=== PATIENT | female | born 1960 | race Caucasian/White ===

== ENCOUNTER → 2016-10-11 | Outpatient (CLI) | payer OTHER ==
[~2016-10-11] MED LIST: 'XANAX0.25 MG PO; ASPIRIN81 M1 PO; ATIVAN1 MG PO; ATOXIMETIN-B1 CAP PO; AUGMENTIN 875875 MG PO; CIPRO500 MG PO; CLARITIN10 MG PO; EPIPEN 2-PAK1 MG/M1 MR; FLEXERIL10 MG PO; FLEXERIL5 MG PO; FLONASE ALLERG9.9 ML NAS; FLONASE ALLERG9.9 ML NS; FOLIC ACID1 MG PO; HYDR12.5C PO; HYDROCODON-ACE1 EACH PO; HYDROCODONE BIT1 T11 PO; K-TAB10 MEQ PO; KCL PO; KEFLEX500 MG PO; LASIX20 MG PO; MAG-OX 400400 MG PO; MASON NATURAL2000 IU PO; MOTRIN800 MG PO; MS CONTIN15 MG PO; MULTI VITAMINS1 CTB PO; NAPROSYN500 MG PO; NKHM; ONE DAILY ESSE1 EACH PO; PENICILLIN VK500 MG PO; PEPCID20 MG PO; POTASSIUM; POTASSIUM25 MEQ PO; PRILOSEC20 MG PO; PROTONIX40 MG PO; TETRACYCLINE500 MG PO; TRAMADOL HCL50 MG PO; VICODIN 5/500 505 MG PO; VICODIN 500 MG-1 TAB PO; VICODIN1 TAB PO; Vicodin 5/500 505 MG PO; XANAX0.25 MG PO; ZOFRAN ODT8 MG PO; ZOLOFT; ZOLOFT50 MG PO
== END | disposition home or self-care (01) ==
LOC: CARD 02:06
DX: I25.89 Other forms of chronic ischemic heart disease (principal); R06.02 Shortness of breath

== ENCOUNTER → 2016-11-07 | Outpatient (CLI) | payer OTHER | END | disposition home or self-care (01) | LOC: CT 14:43 | DX: N20.0 Calculus of kidney (principal); K57.30 Diverticulosis of large intestine without perforation or abscess without bleeding; Z90.49 Acquired absence of other specified parts of digestive tract ==

== ENCOUNTER 2017-04-10 11:47 | Emergency (ER) | payer OTHER ==
[~2017-04-10] VITALS: Ht 154.9 cm; Wt 64.9 kg
[2017-04-10] MEDS ORDERED: METOPROLOL SUCC25 M2 PO (11:56)
[2017-04-10] MEDS ORDERED: PROZAC10 MG PO (11:58)
== END 2017-04-10 13:37 | disposition home or self-care (01) ==
LOC: ED 11:47
DX: S93.401A Sprain of unspecified ligament of right ankle, initial encounter (principal); Z79.899 Other long term (current) drug therapy; Z79.82 Long term (current) use of aspirin; Z87.891 Personal history of nicotine dependence; X50.1XXA Overexertion from prolonged static or awkward postures, initial encounter; Y93.89 Activity, other specified; Y92.89 Other specified places as the place of occurrence of the external cause; Y99.8 Other external cause status

== ENCOUNTER 2017-07-18 19:47 | Inpatient (IN) | payer OTHER ==
[~2017-07-18] VITALS: Ht 154.9 cm; Wt 58.5 kg
[~2017-07-18 19:47] MED LIST changes: +METOPROLOL SUCC25 M2 PO; +PROZAC10 MG PO
[2017-07-18 19:55] VITALS: BP 149/108
[2017-07-18 20:10] LABS: BASO # 0.1 10*3/uL (0.0-0.1); BASO % 1.1 % (0.0-1.0); EOS # 0.1 10*3/uL (0.0-0.4); EOS % 2.1 % (1.0-4.0); HEMATOCRIT 40.9 % (37.0-47.0); HEMOGLOBIN 14.1 g/dl (12.0-16.0); LYMPH # 2.8 10*3/uL (1.3-4.4); LYMPH % 45.3 % (27.0-41.0); MEAN CELL VOLUME 94.9 fl (81.0-99.0); MEAN CORPUSCULAR HGB 32.7 pg (27.0-31.0); MEAN CORPUSCULAR HGB CONC 34.5 g/dl (33.0-37.0); MONO # 0.3 10*3/uL (0.1-1.0); MONO % 4.9 % (3.0-9.0); NEUT # 2.9 10*3/uL (2.3-7.9); NEUT % 46.4 % (47.0-73.0); PLATELET COUNT AUTOMATED 212 10*3/uL (130-400); RED BLOOD COUNT 4.31 10*6/uL (4.10-5.10); RED CELL DISTRI WIDTH 12.3 % (0-14.5); WHITE BLOOD COUNT 6.2 10*3/uL (4.8-10.8)
[2017-07-18 20:31] LABS: ALBUMIN 3.6 gm/dl (3.1-4.5); ALKALINE PHOSPHATASE 160 U/L (45-117); BUN 11 mg/dl (7-24); CHLORIDE 105 mmol/L (98-107); CREATININE 0.51 mg/dL (0.55-1.02); POTASSIUM 4.2 mmol/L (3.5-5.1); SGOT/AST 104 IU/L (3-35); SGPT/ALT 64 U/L (12-78); SODIUM 140 mmol/L (136-145); TOTAL PROTEIN 7.1 gm/dL (6.4-8.2)
[2017-07-18 20:33] LABS: TROPONIN I < 0.015 ng/ml (<0.045)
[2017-07-18 20:37] LABS: LIPASE 709 U/L (73-393)
[2017-07-18 21:13] LABS: ACT PARTIAL THROMBO TIME 27.6 SECONDS (20.8-31.5)
[2017-07-18 23:09] VITALS: BP 159/76
[2017-07-18 23:10] VITALS: BP 159/76
[2017-07-19] VITALS: BP 137/59
[2017-07-19 06:26] LABS: BASO # 0.1 10*3/uL (0.0-0.1); BASO % 0.9 % (0.0-1.0); EOS # 0.2 10*3/uL (0.0-0.4); EOS % 2.6 % (1.0-4.0); HEMATOCRIT 36.5 % (37.0-47.0); HEMOGLOBIN 12.5 g/dl (12.0-16.0); LYMPH # 2.9 10*3/uL (1.3-4.4); LYMPH % 49.1 % (27.0-41.0); MEAN CELL VOLUME 96.3 fl (81.0-99.0); MEAN CORPUSCULAR HGB CONC 34.2 g/dl (33.0-37.0); MEAN PLATELET VOLUME 8.8 fl (9.6-12.3); MONO # 0.4 10*3/uL (0.1-1.0); MONO % 6.5 % (3.0-9.0); NEUT # 2.4 10*3/uL (2.3-7.9); NEUT % 40.7 % (47.0-73.0); PLATELET COUNT AUTOMATED 179 10*3/uL (130-400); RED BLOOD COUNT 3.79 10*6/uL (4.10-5.10); RED CELL DISTRI WIDTH 12.2 % (0-14.5); WHITE BLOOD COUNT 5.8 10*3/uL (4.8-10.8)
[2017-07-19 07:04] LABS: BUN 10 mg/dl (7-24); CHLORIDE 106 mmol/L (98-107); CHOLESTEROL 133 mg/dL (<200); LIPASE 244 U/L (73-393); POTASSIUM 3.7 mmol/L (3.5-5.1); SGOT/AST 64 IU/L (3-35); SODIUM 140 mmol/L (136-145); TOTAL PROTEIN 6.1 gm/dL (6.4-8.2)
[2017-07-19 07:05] LABS: INTERNATIONAL NORM RATIO 1.1 (2.0-3.5)
[2017-07-19 07:14] LABS: ALKALINE PHOSPHATASE 129 U/L (45-117); CREATININE 0.46 mg/dL (0.55-1.02); HDL CHOLESTEROL 71 mg/dl (40-60); LDL CHOLESTEROL 55 mg/dL (9-159); PHOSPHOROUS 3.6 mg/dL (2.5-4.9); SGPT/ALT 48 U/L (12-78); TRIGLYCERIDES 36 mg/dl (<150); VLDL CHOLESTEROL 7 mg/dL (6-40)
[2017-07-19 07:50] LABS: VITAMIN D, 25-HYDROXY 30.1 ng/mL (30-100)
[2017-07-19 08:00] VITALS: BP 142/68
[2017-07-19 12:00] VITALS: BP 148/76
[2017-07-19 16:00] VITALS: BP 139/79
== END 2017-07-19 17:50 | disposition home or self-care (01) | DRG 439 ==
LOC: ED 19:47 → EDHOLD 22:17 → 5E 22:17 → EDHOLD 22:24 → 5E 22:31
PROVIDERS: Emergency Medicine Emergency Medical Services; Internal Medicine
DX: K85.20 Alcohol induced acute pancreatitis without necrosis or infection (principal); E44.0 Moderate protein-calorie malnutrition; N28.1 Cyst of kidney, acquired; K57.30 Diverticulosis of large intestine without perforation or abscess without bleeding; F10.10 Alcohol abuse, uncomplicated; M79.7 Fibromyalgia; I10 Essential (primary) hypertension; M19.90 Unspecified osteoarthritis, unspecified site; K21.9 Gastro-esophageal reflux disease without esophagitis; R74.0 Nonspecific elevation of levels of transaminase and lactic acid dehydrogenase [LDH]; F17.210 Nicotine dependence, cigarettes, uncomplicated; I25.10 Atherosclerotic heart disease of native coronary artery without angina pectoris; R07.89 Other chest pain; F41.1 Generalized anxiety disorder; Z68.24 Body mass index [BMI] 24.0-24.9, adult; Z82.49 Family history of ischemic heart disease and other diseases of the circulatory system; Z79.82 Long term (current) use of aspirin; Z79.899 Other long term (current) drug therapy; Z90.49 Acquired absence of other specified parts of digestive tract; Z98.891 History of uterine scar from previous surgery; Z83.6 Family history of other diseases of the respiratory system; Z80.8 Family history of malignant neoplasm of other organs or systems; Z80.0 Family history of malignant neoplasm of digestive organs; Z82.3 Family history of stroke

== ENCOUNTER 2018-01-17 07:29 | Emergency (ER) | payer OTHER ==
--- NOTE | ~2018-01-17 | EKG ---
[place], [place] ELECTROCARDIOGRAM REPORT NAME: RIKY RUDOLPH UNIT #: [id number] ROOM: DOCTOR: EPIPHANY DRAFT REPORT BIRTHDATE: [birth year] [facility] Test Date: 2018-01-17 Test Time: 08:01:51 Pat Name: RIKY RUDOLPH Department: Room: Gender: [employer] Dispatcher: Chantal De La O : 1960 Requested By: YUMIKO BAUMANN Order Number: [id number] Reading MD: Josue Hawkins MD Measurements Intervals [place] Rate: 75 P: 71 VA: 178 QRS: 81 QRSD: 95 T: 67 QT: 421 QTc: 471 Interpretive Statements Sinus rhythm Atrial premature complex Abnormal T, probable ischemia, anterior leads Baseline wander in lead(s) V3 Electronically Signed On 01-17-2018 16:50:18 PDT by Josue Hawkins MD CM:EKGRPT:ELECTROCARDIOGRAM REPORT [id number] YUMIKO MARIO DRAFT REPORT YUMIKO BAUMANN MD
[2018-01-17 08:08] LABS: BASO # 0.1 10*3/uL (0.0-0.1); BASO % 0.9 % (0.0-1.0); EOS # 0.2 10*3/uL (0.0-0.4); EOS % 3.4 % (1.0-4.0); HEMATOCRIT 42.1 % (37.0-47.0); HEMOGLOBIN 14.7 g/dl (12.0-16.0); LYMPH # 3.7 10*3/uL (1.3-4.4); MEAN CELL VOLUME 99.3 fl (81.0-99.0); MEAN CORPUSCULAR HGB 34.7 pg (27.0-31.0); MEAN CORPUSCULAR HGB CONC 34.9 g/dl (33.0-37.0); MEAN PLATELET VOLUME 8.7 fl (9.6-12.3); MONO # 0.4 10*3/uL (0.1-1.0); MONO % 6.3 % (3.0-9.0); NEUT % 31.2 % (47.0-73.0); PLATELET COUNT AUTOMATED 146 10*3/uL (130-400); RED BLOOD COUNT 4.24 10*6/uL (4.10-5.10); RED CELL DISTRI WIDTH 12.4 % (0-14.5); WHITE BLOOD COUNT 6.4 10*3/uL (4.8-10.8)
[2018-01-17 08:19] LABS: ACT PARTIAL THROMBO TIME 27.9 SECONDS (20.8-31.5)
[2018-01-17 08:23] LABS: ALKALINE PHOSPHATASE 150 U/L (45-117); BUN 10 mg/dl (7-24); CHLORIDE 106 mmol/L (98-107); CREATININE 0.57 mg/dL (0.55-1.02); POTASSIUM 3.4 mmol/L (3.5-5.1); SGOT/AST 42 IU/L (3-35); SGPT/ALT 32 U/L (12-78); SODIUM 145 mmol/L (136-145); TOTAL PROTEIN 7.8 gm/dL (6.4-8.2)
[2018-01-17 08:26] LABS: TROPONIN I < 0.015 ng/ml (<0.045)
[2018-01-17 08:36] LABS: BILIRUBIN NEGATIVE (NEGATIVE); BLOOD 1+ (NEGATIVE); CLARITY CLEAR (CLEAR); COLOR YELLOW (YELLOW); GLUCOSE NEGATIVE (NEGATIVE); KETONE NEGATIVE (NEGATIVE); LEUKO ESTERASE TRACE (NEGATIVE); NITRITE NEGATIVE (NEGATIVE); SPECIFIC GRAVITY <= 1.005 (1.005-1.030); UROBILINOGEN 0.2 E.U./dl (0.2-1.0)
[2018-01-17 08:40] LABS: URINE AMPHETAMINES < 1000 (1000ng/ml); URINE BARBITURATES < 200 (200ng/ml); URINE BENZODIAZEPINES < 200 (200ng/ml); URINE CANNABINOIDS (THC) < 50 (50ng/ml); URINE COCAINE < 300 (300ng/ml); URINE METHADONE < 300 (300ng/ml); URINE OPIATES < 300 (300ng/ml)
[2018-01-17 08:41] LABS: URINE PHENCYCLIDINE < 25 (25ng/ml)
[2018-01-17 08:54] LABS: BACTERIA TRACE
== END 2018-01-17 11:27 | disposition home or self-care (01) ==
LOC: ED 07:29
PROVIDERS: Emergency Medicine
DX: S01.01XA Laceration without foreign body of scalp, initial encounter (principal); S09.90XA Unspecified injury of head, initial encounter; I25.10 Atherosclerotic heart disease of native coronary artery without angina pectoris; M79.7 Fibromyalgia; K21.9 Gastro-esophageal reflux disease without esophagitis; I10 Essential (primary) hypertension; F17.200 Nicotine dependence, unspecified, uncomplicated; M19.90 Unspecified osteoarthritis, unspecified site; F10.220 Alcohol dependence with intoxication, uncomplicated; Z98.890 Other specified postprocedural states; Z90.49 Acquired absence of other specified parts of digestive tract; Z98.51 Tubal ligation status; Z79.82 Long term (current) use of aspirin; Z79.899 Other long term (current) drug therapy; W19.XXXA Unspecified fall, initial encounter; Y93.89 Activity, other specified; Y92.89 Other specified places as the place of occurrence of the external cause; Y99.9 Unspecified external cause status

== ENCOUNTER 2020-02-17 02:22 | Inpatient (IN) | payer OTHER ==
[2020-02-17] VITALS (9 sets, daily range): BP systolic 114–157; BP diastolic 57–98
[~2020-02-17] VITALS: Ht 154.9 cm; Wt 63.6 kg
[~2020-02-17 02:22] MED LIST changes: +CYMBALTA30 MG PO; +PERCOCET 10-321 EACH PO
[2020-02-17 02:50] LABS: BASO % 0.4 % (0.0-1.0); EOS # 0.1 10*3/uL (0.0-0.4); EOS % 0.6 % (1.0-4.0); HEMATOCRIT 43.6 % (37.0-47.0); LYMPH # 4.2 10*3/uL (1.3-4.4); LYMPH % 43.2 % (27.0-41.0); MEAN CELL VOLUME 96.7 fl (81.0-99.0); MEAN CORPUSCULAR HGB 33.5 pg (27.0-31.0); MEAN CORPUSCULAR HGB CONC 34.6 g/dl (33.0-37.0); MEAN PLATELET VOLUME 8.4 fl (9.6-12.3); MONO # 0.4 10*3/uL (0.1-1.0); MONO % 4.4 % (3.0-9.0); NEUT # 4.9 10*3/uL (2.3-7.9); NEUT % 51.1 % (47.0-73.0); PLATELET COUNT AUTOMATED 207 10*3/uL (130-400); RED BLOOD COUNT 4.51 10*6/uL (4.10-5.10); WHITE BLOOD COUNT 9.6 10*3/uL (4.8-10.8)
[2020-02-17 03:05] LABS: ALKALINE PHOSPHATASE 152 U/L (45-117); BUN 8 mg/dl (7-24); CHLORIDE 103 mmol/L (98-107); CREATININE 0.62 mg/dL (0.55-1.02); POTASSIUM 3.4 mmol/L (3.5-5.1); SGOT/AST 88 IU/L (3-35); SGPT/ALT 30 U/L (12-78); SODIUM 140 mmol/L (136-145); TOTAL PROTEIN 8.2 gm/dL (6.4-8.2)
[2020-02-17] MEDS ORDERED: PAROXETINE HCL20 MG PO (05:56)
[2020-02-17] MEDS ORDERED: PAROXETINE HCL10 MG PO (05:56)
[2020-02-17] MEDS ORDERED: PROVENTIL HFA6.7 GM INH (05:58)
[2020-02-18] VITALS: BP 143/98
[2020-02-18 06:31] LABS: BASO % 0.1 % (0.0-1.0); HEMATOCRIT 37.8 % (37.0-47.0); LYMPH # 0.9 10*3/uL (1.3-4.4); LYMPH % 9.3 % (27.0-41.0); MEAN CELL VOLUME 96.7 fl (81.0-99.0); MEAN CORPUSCULAR HGB 33.5 pg (27.0-31.0); MEAN CORPUSCULAR HGB CONC 34.7 g/dl (33.0-37.0); MEAN PLATELET VOLUME 9.3 fl (9.6-12.3); MONO # 0.5 10*3/uL (0.1-1.0); MONO % 5.8 % (3.0-9.0); NEUT # 7.7 10*3/uL (2.3-7.9); NEUT % 84.5 % (47.0-73.0); PLATELET COUNT AUTOMATED 150 10*3/uL (130-400); RED BLOOD COUNT 3.91 10*6/uL (4.10-5.10); RED CELL DISTRI WIDTH 11.9 % (0-14.5); WHITE BLOOD COUNT 9.1 10*3/uL (4.8-10.8)
[2020-02-18 07:02] LABS: ALBUMIN 3.4 gm/dl (3.1-4.5); ALKALINE PHOSPHATASE 107 U/L (45-117); BUN 9 mg/dl (7-24); CHLORIDE 101 mmol/L (98-107); CREATININE 0.43 mg/dL (0.55-1.02); POTASSIUM 3.3 mmol/L (3.5-5.1); SGOT/AST 51 IU/L (3-35); SGPT/ALT 24 U/L (12-78); SODIUM 138 mmol/L (136-145)
[2020-02-18 08:00] VITALS: BP 150/70
[2020-02-18] MEDS ORDERED: OMNICEF300 MG PO (11:31)
[2020-02-18] MEDS ORDERED: ZITHROMAX250 MG PO (11:31)
[2020-02-18] MEDS ORDERED: PREDNISONE10 MG PO (11:33)
[2020-02-18 12:00] VITALS: BP 134/73
== END 2020-02-18 13:30 | disposition home or self-care (01) | DRG 720 ==
LOC: ED 02:22 → 5E 04:17 → EDHOLD 04:17 → 5E 04:48
PROVIDERS: Internal Medicine; ADMIT Student in an Organized Health Care Education/Training Program; ATTEND Student in an Organized Health Care Education/Training Program
DX: A41.9 Sepsis, unspecified organism (principal); J18.9 Pneumonia, unspecified organism; M79.7 Fibromyalgia; K21.9 Gastro-esophageal reflux disease without esophagitis; I25.10 Atherosclerotic heart disease of native coronary artery without angina pectoris; E87.6 Hypokalemia; R65.20 Severe sepsis without septic shock; R73.9 Hyperglycemia, unspecified; R74.01 Elevation of levels of liver transaminase levels; I10 Essential (primary) hypertension; M19.90 Unspecified osteoarthritis, unspecified site; F17.210 Nicotine dependence, cigarettes, uncomplicated; K57.90 Diverticulosis of intestine, part unspecified, without perforation or abscess without bleeding; F41.1 Generalized anxiety disorder; J96.01 Acute respiratory failure with hypoxia; Z71.6 Tobacco abuse counseling; Z98.891 History of uterine scar from previous surgery; Z90.49 Acquired absence of other specified parts of digestive tract; Z98.51 Tubal ligation status; Z82.5 Family history of asthma and other chronic lower respiratory diseases; Z82.49 Family history of ischemic heart disease and other diseases of the circulatory system; Z82.3 Family history of stroke; Z80.0 Family history of malignant neoplasm of digestive organs; Z79.82 Long term (current) use of aspirin; Z79.899 Other long term (current) drug therapy

== ENCOUNTER 2020-05-03 15:55 | Emergency (ER) | payer OTHER ==
[~2020-05-03] VITALS: Ht 154.9 cm; Wt 59.0 kg
[~2020-05-03 15:55] MED LIST changes: +OMNICEF300 MG PO; +PAROXETINE HCL10 MG PO; +PAROXETINE HCL20 MG PO; +PREDNISONE10 MG PO; +PROVENTIL HFA6.7 GM INH; +ZITHROMAX250 MG PO
[2020-05-03 16:33] LABS: BASO # 0.1 10*3/uL (0.0-0.1); BASO % 1.8 % (0.0-1.0); EOS # 0.1 10*3/uL (0.0-0.4); EOS % 1.1 % (1.0-4.0); HEMATOCRIT 49.3 % (37.0-47.0); LYMPH # 1.5 10*3/uL (1.3-4.4); LYMPH % 34.9 % (27.0-41.0); MEAN CELL VOLUME 97.8 fl (81.0-99.0); MEAN CORPUSCULAR HGB 32.1 pg (27.0-31.0); MEAN CORPUSCULAR HGB CONC 32.9 g/dl (33.0-37.0); MEAN PLATELET VOLUME 8.1 fl (9.6-12.3); MONO # 0.4 10*3/uL (0.1-1.0); NEUT # 2.4 10*3/uL (2.3-7.9); PLATELET COUNT AUTOMATED 301 10*3/uL (130-400); RED BLOOD COUNT 5.04 10*6/uL (4.10-5.10); RED CELL DISTRI WIDTH 12.7 % (0-14.5); WHITE BLOOD COUNT 4.4 10*3/uL (4.8-10.8)
[2020-05-03 16:44] LABS: ACT PARTIAL THROMBO TIME 30.2 SECONDS (20.0-32.1); INTERNATIONAL NORM RATIO 1.1 (2.0-3.5)
[2020-05-03 16:53] LABS: ALBUMIN 3.4 gm/dl (3.1-4.5); ALKALINE PHOSPHATASE 268 U/L (45-117); BUN 7 mg/dl (7-24); CHLORIDE 104 mmol/L (98-107); CREATININE 0.55 mg/dL (0.55-1.02); POTASSIUM 3.8 mmol/L (3.5-5.1); SGOT/AST 333 IU/L (3-35); SGPT/ALT 132 U/L (12-78); SODIUM 137 mmol/L (136-145); TOTAL PROTEIN 7.4 gm/dL (6.4-8.2)
[2020-05-03 16:54] LABS: TROPONIN I < 0.015 ng/ml (<0.045)
[2020-05-03] MEDS ORDERED: PEPCID20 MG PO (18:08)
== END 2020-05-03 18:11 | disposition home or self-care (01) ==
LOC: ED 15:55
PROVIDERS: Emergency Medicine
DX: R10.13 Epigastric pain (principal); Z90.49 Acquired absence of other specified parts of digestive tract; Z79.899 Other long term (current) drug therapy; Z79.82 Long term (current) use of aspirin

== ENCOUNTER → 2020-08-17 | Outpatient (CLI) | payer OTHER ==
[2020-08-17 14:36] LABS: BASO # 0.1 10*3/uL (0.0-0.1); BASO % 1.1 % (0.0-1.0); EOS # 0.2 10*3/uL (0.0-0.4); EOS % 2.5 % (1.0-4.0); HEMATOCRIT 48.1 % (37.0-47.0); LYMPH # 3.3 10*3/uL (1.3-4.4); LYMPH % 51.2 % (27.0-41.0); MEAN CORPUSCULAR HGB 33.1 pg (27.0-31.0); MEAN CORPUSCULAR HGB CONC 34.5 g/dl (33.0-37.0); MEAN PLATELET VOLUME 8.3 fl (9.6-12.3); MONO # 0.4 10*3/uL (0.1-1.0); NEUT # 2.5 10*3/uL (2.3-7.9); PLATELET COUNT AUTOMATED 252 10*3/uL (130-400); RED BLOOD COUNT 5.01 10*6/uL (4.10-5.10); RED CELL DISTRI WIDTH 14.1 % (0-14.5); RETICULOCYTE % 1.36 % (0.50-2.50); WHITE BLOOD COUNT 6.5 10*3/uL (4.8-10.8)
[2020-08-17 14:39] LABS: BILIRUBIN Negative (Negative); BLOOD Negative (Negative); CLARITY Clear (Clear); COLOR Yellow (Yellow); GLUCOSE Negative (Negative); KETONE Trace (Negative); LEUKO ESTERASE Negative (Negative); NITRITE Negative (Negative)
[2020-08-17 15:16] LABS: ALBUMIN 3.9 gm/dl (3.1-4.5); BACTERIA TRACE; BUN 9 mg/dl (7-24); CHLORIDE 105 mmol/L (98-107); CHOLESTEROL 173 mg/dL (<200); CREATININE 0.54 mg/dL (0.55-1.02); FINE GRANULAR CAST 0-2; GAMMA GLUTAMYL TRANSPEPTIDASE 213 U/L (5-55); HYALINE CAST 0-2; IRON 203 ug/dL (50-170); MUCOUS 1+; POTASSIUM 3.6 mmol/L (3.5-5.1); RBC 0-2 rbc/hpf (0-2); SGOT/AST 73 IU/L (3-35); SGPT/ALT 42 U/L (12-78); SODIUM 139 mmol/L (136-145); TRIGLYCERIDES 86 mg/dl (<150); WBC 0-2 wbc/hpf (0-5)
[2020-08-17 15:25] LABS: ALKALINE PHOSPHATASE 207 U/L (45-117); LDL CHOLESTEROL 48 mg/dL (9-159); TOTAL IRON BINDING CAPACITY 349 ug/dl (250-450); TOTAL PROTEIN 8.1 gm/dL (6.4-8.2)
[2020-08-17 15:32] LABS: VITAMIN D, 25-HYDROXY 24.5 ng/mL (30-100)
[2020-08-17 15:33] LABS: FERRITIN 53.1 ng/mL (10.0-291.0)
== END | disposition home or self-care (01) ==
LOC: LAB 14:15
PROVIDERS: ATTEND Family Medicine
DX: E55.9 Vitamin D deficiency, unspecified (principal); E78.5 Hyperlipidemia, unspecified; R79.89 Other specified abnormal findings of blood chemistry; R53.83 Other fatigue

== ENCOUNTER 2020-12-04 10:49 | Emergency (ER) | payer OTHER ==
[~2020-12-04] VITALS: Ht 157.4 cm; Wt 58.1 kg
[2020-12-04 11:25] LABS: BASO % 0.6 % (0.0-1.0); EOS % 0.6 % (1.0-4.0); HEMATOCRIT 40.6 % (37.0-47.0); LYMPH # 1.5 10*3/uL (1.3-4.4); LYMPH % 23.5 % (27.0-41.0); MEAN CELL VOLUME 95.5 fl (81.0-99.0); MEAN CORPUSCULAR HGB 33.9 pg (27.0-31.0); MEAN CORPUSCULAR HGB CONC 35.5 g/dl (33.0-37.0); MEAN PLATELET VOLUME 8.6 fl (9.6-12.3); MONO # 0.9 10*3/uL (0.1-1.0); MONO % 13.3 % (3.0-9.0); NEUT % 61.8 % (47.0-73.0); PLATELET COUNT AUTOMATED 185 10*3/uL (130-400); RED BLOOD COUNT 4.25 10*6/uL (4.10-5.10); RED CELL DISTRI WIDTH 11.5 % (0-14.5); WHITE BLOOD COUNT 6.5 10*3/uL (4.8-10.8)
[2020-12-04 11:42] LABS: ALBUMIN 3.6 gm/dl (3.1-4.5); ALKALINE PHOSPHATASE 125 U/L (45-117); BUN 7 mg/dl (7-24); CHLORIDE 96 mmol/L (98-107); CREATININE 0.47 mg/dL (0.55-1.02); POTASSIUM 2.7 mmol/L (3.5-5.1); SGOT/AST 9 IU/L (3-35); SGPT/ALT 15 U/L (12-78); SODIUM 134 mmol/L (136-145); TOTAL PROTEIN 7.7 gm/dL (6.4-8.2)
[2020-12-04 11:45] LABS: ETHYL ALCOHOL < 3.0 mg/dl (<3)
[2020-12-04] MEDS ORDERED: MAGNESIUM400 M1 PO (14:56)
[2020-12-04] MEDS ORDERED: POTASSIUM CHLO20 ME3 PO (14:56)
[2020-12-04 15:22] LABS: BUN 6 mg/dl (7-24); CHLORIDE 104 mmol/L (98-107); CREATININE 0.36 mg/dL (0.55-1.02); POTASSIUM 3.4 mmol/L (3.5-5.1); SODIUM 138 mmol/L (136-145)
== END 2020-12-04 15:34 | disposition home or self-care (01) ==
LOC: ED 10:49
PROVIDERS: Emergency Medicine
DX: M54.5 Low back pain (principal); G89.29 Other chronic pain; E87.6 Hypokalemia; E83.42 Hypomagnesemia; I25.10 Atherosclerotic heart disease of native coronary artery without angina pectoris; M79.7 Fibromyalgia; K21.9 Gastro-esophageal reflux disease without esophagitis; I10 Essential (primary) hypertension; M19.90 Unspecified osteoarthritis, unspecified site; F17.200 Nicotine dependence, unspecified, uncomplicated; Z98.61 Coronary angioplasty status; Z79.899 Other long term (current) drug therapy; Z79.2 Long term (current) use of antibiotics; Z79.82 Long term (current) use of aspirin; Z98.890 Other specified postprocedural states; Z90.49 Acquired absence of other specified parts of digestive tract

== ENCOUNTER 2021-08-18 17:28 | Inpatient (IN) | payer OTHER ==
[~2021-08-18] VITALS: Ht 157.5 cm; Wt 60.6 kg
[~2021-08-18 17:28] MED LIST changes: +MAGNESIUM400 M1 PO; +POTASSIUM CHLO20 ME3 PO
[2021-08-18 17:35] VITALS: BP 146/114
[2021-08-18 18:23] LABS: BASO # 0.1 10*3/uL (0.0-0.1); BASO % 0.7 % (0.0-1.0); HEMATOCRIT 54.1 % (37.0-47.0); LYMPH % 6.8 % (27.0-41.0); MEAN CELL VOLUME 99.4 fl (81.0-99.0); MEAN CORPUSCULAR HGB 32.5 pg (27.0-31.0); MEAN CORPUSCULAR HGB CONC 32.7 g/dl (33.0-37.0); MEAN PLATELET VOLUME 9.1 fl (9.6-12.3); MONO # 0.5 10*3/uL (0.1-1.0); MONO % 3.5 % (3.0-9.0); NEUT # 12.3 10*3/uL (2.3-7.9); NEUT % 87.3 % (47.0-73.0); PLATELET COUNT AUTOMATED 209 10*3/uL (130-400); RED BLOOD COUNT 5.44 10*6/uL (4.10-5.10)
[2021-08-18 18:33] LABS: ALKALINE PHOSPHATASE 198 U/L (45-117); BUN 13 mg/dl (7-24); CHLORIDE 101 mmol/L (98-107); CREATININE 0.94 mg/dL (0.55-1.02); SGOT/AST 79 IU/L (3-35); SGPT/ALT 55 U/L (12-78); SODIUM 137 mmol/L (136-145); TOTAL PROTEIN 9.6 gm/dL (6.4-8.2)
[2021-08-18 19:28] VITALS: BP 156/71
[2021-08-18] MEDS ORDERED: MORPHINE SULFAT30 M9 PO (19:47)
[2021-08-18] MEDS ORDERED: HYDROXYZINE HCL25 MG PO (19:48)
[2021-08-18] MEDS ORDERED: NATURE'S BLEND F1 MG PO (19:49)
[2021-08-18] MEDS ORDERED: PANTOPRAZOLE SO40 MG PO (19:50)
[2021-08-18] MEDS ORDERED: PREGABALIN100 MG PO (19:50)
[2021-08-18] MEDS ORDERED: METOPROLOL TART50 M1 PO (19:51)
[2021-08-18 20:47] LABS: BILIRUBIN Negative (Negative); BLOOD 1+ (Negative); CLARITY Clear (Clear); COLOR Yellow (Yellow); GLUCOSE Negative (Negative); KETONE 4+ (Negative); LEUKO ESTERASE Negative (Negative); NITRITE Negative (Negative); SPECIFIC GRAVITY 1.015 (1.001-1.030)
[2021-08-18 21:00] LABS: BACTERIA 1+; EPITHELIAL CELLS TNTC; WBC 0-2 wbc/hpf (0-5)
[2021-08-18 21:38] LABS: URINE AMPHETAMINES < 1000 (1000ng/ml); URINE BARBITURATES < 200 (200ng/ml); URINE BENZODIAZEPINES < 200 (200ng/ml); URINE CANNABINOIDS (THC) < 50 (50ng/ml); URINE COCAINE < 300 (300ng/ml); URINE METHADONE < 300 (300ng/ml); URINE OPIATES > 300 (300ng/ml)
[2021-08-18 21:39] LABS: URINE PHENCYCLIDINE < 25 (25ng/ml)
[2021-08-18 21:40] VITALS: BP 150/69
[2021-08-18 22:21] VITALS: BP 129/72
[2021-08-18 23:58] VITALS: BP 101/74
[2021-08-19] VITALS (7 sets, daily range): BP systolic 92–141; BP diastolic 50–76
[2021-08-19 05:40] LABS: BUN 11 mg/dl (7-24); CHLORIDE 109 mmol/L (98-107); POTASSIUM 4.5 mmol/L (3.5-5.1); SODIUM 139 mmol/L (136-145)
[2021-08-19 05:44] LABS: ALKALINE PHOSPHATASE 139 U/L (45-117); CHOLESTEROL 115 mg/dL (<200); CREATININE 0.89 mg/dL (0.55-1.02); LDL CHOLESTEROL 28 mg/dL (9-159); SGOT/AST 53 IU/L (3-35); SGPT/ALT 39 U/L (12-78); TOTAL PROTEIN 7.2 gm/dL (6.4-8.2); TRIGLYCERIDES 63 mg/dl (<150)
[2021-08-19 05:50] LABS: FREE T4 0.88 ng/dl (0.76-1.46); THYROID STIM HORMONE (HS) 0.178 uIU/ml (0.358-4.75)
[2021-08-19 06:13] LABS: ACT PARTIAL THROMBO TIME 33.9 SECONDS (20.0-32.1); INTERNATIONAL NORM RATIO 1.1 (2.0-3.5)
[2021-08-19 06:28] LABS: BASO % 0.1 % (0.0-1.0); HEMATOCRIT 41.6 % (37.0-47.0); LYMPH # 1.7 10*3/uL (1.3-4.4); MEAN CELL VOLUME 97.7 fl (81.0-99.0); MEAN CORPUSCULAR HGB 33.1 pg (27.0-31.0); MEAN CORPUSCULAR HGB CONC 33.9 g/dl (33.0-37.0); MEAN PLATELET VOLUME 9.4 fl (9.6-12.3); MONO # 0.7 10*3/uL (0.1-1.0); MONO % 7.5 % (3.0-9.0); NEUT # 7.4 10*3/uL (2.3-7.9); NEUT % 74.9 % (47.0-73.0); RED BLOOD COUNT 4.26 10*6/uL (4.10-5.10); WHITE BLOOD COUNT 9.9 10*3/uL (4.8-10.8)
[2021-08-19 07:09] LABS: PLATELET COUNT AUTOMATED 121 10*3/uL (130-400)
[2021-08-20] VITALS: BP 93/57
[2021-08-20 04:00] VITALS: BP 99/56
[2021-08-20 06:06] LABS: BASO % 0.6 % (0.0-1.0); EOS % 0.2 % (1.0-4.0); HEMATOCRIT 36.7 % (37.0-47.0); LYMPH # 2.7 10*3/uL (1.3-4.4); LYMPH % 53.4 % (27.0-41.0); MEAN CELL VOLUME 95.8 fl (81.0-99.0); MEAN CORPUSCULAR HGB 32.6 pg (27.0-31.0); MEAN CORPUSCULAR HGB CONC 34.1 g/dl (33.0-37.0); MEAN PLATELET VOLUME 9.5 fl (9.6-12.3); MONO # 0.3 10*3/uL (0.1-1.0); MONO % 6.7 % (3.0-9.0); NEUT # 1.9 10*3/uL (2.3-7.9); NEUT % 38.7 % (47.0-73.0); PLATELET COUNT AUTOMATED 87 10*3/uL (130-400); RED BLOOD COUNT 3.83 10*6/uL (4.10-5.10)
[2021-08-20 06:18] LABS: ALKALINE PHOSPHATASE 112 U/L (45-117); BUN 4 mg/dl (7-24); CHLORIDE 110 mmol/L (98-107); CREATININE 0.59 mg/dL (0.55-1.02); POTASSIUM 3.6 mmol/L (3.5-5.1); SGOT/AST 33 IU/L (3-35); SGPT/ALT 27 U/L (12-78); SODIUM 140 mmol/L (136-145); TOTAL PROTEIN 6.2 gm/dL (6.4-8.2)
[2021-08-20 08:00] VITALS: BP 109/77
[2021-08-20] MEDS ORDERED: ZOLOFT100 MG PO (10:40)
[2021-08-20 12:00] VITALS: BP 121/76
[2021-08-20 16:00] VITALS: BP 113/76
[2021-08-20 20:00] VITALS: BP 128/84
[2021-08-21] VITALS: BP 114/67
[2021-08-21 06:17] LABS: BASO % 0.7 % (0.0-1.0); EOS # 0.1 10*3/uL (0.0-0.4); EOS % 1.5 % (1.0-4.0); HEMATOCRIT 37.5 % (37.0-47.0); LYMPH # 2.3 10*3/uL (1.3-4.4); LYMPH % 50.7 % (27.0-41.0); MEAN CELL VOLUME 97.7 fl (81.0-99.0); MEAN CORPUSCULAR HGB 32.8 pg (27.0-31.0); MEAN CORPUSCULAR HGB CONC 33.6 g/dl (33.0-37.0); MEAN PLATELET VOLUME 9.7 fl (9.6-12.3); MONO # 0.4 10*3/uL (0.1-1.0); MONO % 7.6 % (3.0-9.0); NEUT # 1.8 10*3/uL (2.3-7.9); NEUT % 39.3 % (47.0-73.0); PLATELET COUNT AUTOMATED 89 10*3/uL (130-400); RED BLOOD COUNT 3.84 10*6/uL (4.10-5.10); RED CELL DISTRI WIDTH 13.2 % (0-14.5); WHITE BLOOD COUNT 4.6 10*3/uL (4.8-10.8)
[2021-08-21 06:25] LABS: ALKALINE PHOSPHATASE 106 U/L (45-117); BUN 2 mg/dl (7-24); CHLORIDE 109 mmol/L (98-107); CREATININE 0.49 mg/dL (0.55-1.02); POTASSIUM 3.5 mmol/L (3.5-5.1); SGOT/AST 25 IU/L (3-35); SGPT/ALT 23 U/L (12-78); SODIUM 141 mmol/L (136-145); TOTAL PROTEIN 6.1 gm/dL (6.4-8.2)
[2021-08-21 08:00] VITALS: BP 110/66
[2021-08-21 12:00] VITALS: BP 116/74
[2021-08-21] MEDS ORDERED: AUGMENTIN 875-875 MG PO (12:46)
== END 2021-08-21 16:14 | disposition home or self-care (01) | DRG 720 ==
LOC: ED 17:28 → EDHOLD 08-19 00:16 → 5E 08-19 00:16 → ICCU 08-19 00:48 → 5E 08-20 16:52
PROVIDERS: Family Medicine; Internal Medicine; Nurse Practitioner Family; ADMIT Emergency Medicine; ATTEND Emergency Medicine
DX: A41.9 Sepsis, unspecified organism (principal); F10.239 Alcohol dependence with withdrawal, unspecified; K51.00 Ulcerative (chronic) pancolitis without complications; E87.2 Acidosis; D75.1 Secondary polycythemia; R74.01 Elevation of levels of liver transaminase levels; R73.9 Hyperglycemia, unspecified; F11.90 Opioid use, unspecified, uncomplicated; I10 Essential (primary) hypertension; M19.90 Unspecified osteoarthritis, unspecified site; K21.9 Gastro-esophageal reflux disease without esophagitis; F41.1 Generalized anxiety disorder; F17.210 Nicotine dependence, cigarettes, uncomplicated; G43.909 Migraine, unspecified, not intractable, without status migrainosus; E87.8 Other disorders of electrolyte and fluid balance, not elsewhere classified; E83.42 Hypomagnesemia; E83.51 Hypocalcemia; R65.20 Severe sepsis without septic shock; Z80.0 Family history of malignant neoplasm of digestive organs; Z82.49 Family history of ischemic heart disease and other diseases of the circulatory system; Z82.5 Family history of asthma and other chronic lower respiratory diseases; Z79.51 Long term (current) use of inhaled steroids; Z90.49 Acquired absence of other specified parts of digestive tract; Z79.82 Long term (current) use of aspirin; Z79.899 Other long term (current) drug therapy

== ENCOUNTER 2021-12-04 14:06 | Emergency (ER) | payer OTHER ==
[~2021-12-04] VITALS: Wt 59.0 kg
[~2021-12-04 14:06] MED LIST changes: +AUGMENTIN 875-875 MG PO; +HYDROXYZINE HCL25 MG PO; +METOPROLOL TART50 M1 PO; +MORPHINE SULFAT30 M9 PO; +NATURE'S BLEND F1 MG PO; +PANTOPRAZOLE SO40 MG PO; +PREGABALIN100 MG PO; +ZOLOFT100 MG PO
[2021-12-04 15:44] LABS: HEMATOCRIT 40.8 % (37.0-47.0); MANUAL DIFF REFLEX YES; MEAN CELL VOLUME 85.9 fl (81.0-99.0); MEAN CORPUSCULAR HGB 29.9 pg (27.0-31.0); MEAN CORPUSCULAR HGB CONC 34.8 g/dl (33.0-37.0); MEAN PLATELET VOLUME 9.6 fl (9.6-12.3); PLATELET COUNT AUTOMATED 283 10*3/uL (130-400); RED BLOOD COUNT 4.75 10*6/uL (4.10-5.10); RED CELL DISTRI WIDTH 14.1 % (0-14.5); WHITE BLOOD COUNT 6.2 10*3/uL (4.8-10.8)
[2021-12-04 16:04] LABS: ALKALINE PHOSPHATASE 145 U/L (45-117); BUN 7 mg/dl (7-24); CHLORIDE 95 mmol/L (98-107); CREATININE 0.57 mg/dL (0.55-1.02); SGOT/AST 21 IU/L (3-35); SGPT/ALT 23 U/L (12-78); SODIUM 131 mmol/L (136-145); TOTAL PROTEIN 7.1 gm/dL (6.4-8.2)
[2021-12-04 16:08] LABS: ATYPICAL LYMPHS 2 % (0-0); PLATELET SUFFICIENCY NORMAL (NORMAL); TOTAL CELLS COUNTED 100 #CELLS
[2021-12-04] MEDS ORDERED: VIBRAMYCIN100 MG PO (17:59)
== END 2021-12-04 18:17 | disposition home or self-care (01) ==
LOC: ED 14:06
PROVIDERS: Nurse Practitioner Family
DX: A26.0 Cutaneous erysipeloid (principal); Z79.899 Other long term (current) drug therapy; Z79.82 Long term (current) use of aspirin; Z98.890 Other specified postprocedural states; Z90.49 Acquired absence of other specified parts of digestive tract; Z98.51 Tubal ligation status; Z87.891 Personal history of nicotine dependence

== ENCOUNTER → 2022-04-25 | Outpatient (CLI) | payer OTHER ==
[~2022-04-25] MED LIST changes: +VIBRAMYCIN100 MG PO
== END | disposition home or self-care (01) ==
LOC: MRI 01:36
PROVIDERS: ATTEND Anesthesiology
DX: M47.817 Spondylosis without myelopathy or radiculopathy, lumbosacral region (principal); M51.36 Other intervertebral disc degeneration, lumbar region

== ENCOUNTER → 2022-10-04 | Outpatient (CLI) | payer OTHER ==
[2022-10-04 17:05] LABS: BILIRUBIN Negative (Negative); BLOOD Negative (Negative); CLARITY Clear (Clear); COLOR Yellow (Yellow); GLUCOSE Negative (Negative); KETONE Negative (Negative); LEUKO ESTERASE Negative (Negative); NITRITE Negative (Negative); PH 5.5 (4.5-8.0); UROBILINOGEN 0.2 E.U./dl (0.0-1.0)
[2022-10-04 17:05] LABS: BASO % 0.9 % (0.0-1.0); EOS # 0.1 10*3/uL (0.0-0.4); EOS % 2.4 % (1.0-4.0); HEMATOCRIT 43.9 % (37.0-47.0); LYMPH # 1.6 10*3/uL (1.3-4.4); LYMPH % 35.6 % (27.0-41.0); MEAN CELL VOLUME 99.8 fl (81.0-99.0); MEAN CORPUSCULAR HGB 33.6 pg (27.0-31.0); MEAN CORPUSCULAR HGB CONC 33.7 g/dl (33.0-37.0); MEAN PLATELET VOLUME 9.7 fl (9.6-12.3); MONO # 0.4 10*3/uL (0.1-1.0); MONO % 8.3 % (3.0-9.0); NEUT # 2.4 10*3/uL (2.3-7.9); NEUT % 52.6 % (47.0-73.0); PLATELET COUNT AUTOMATED 120 10*3/uL (130-400); RED CELL DISTRI WIDTH 14.5 % (0-14.5); RETICULOCYTE % 1.31 % (0.50-2.50); WHITE BLOOD COUNT 4.6 10*3/uL (4.8-10.8)
[2022-10-04 17:13] LABS: HYALINE CAST 0-2; MUCOUS 1+
[2022-10-04 17:16] LABS: INTERNATIONAL NORM RATIO 1.1 (2.0-3.5)
[2022-10-04 17:30] LABS: ALKALINE PHOSPHATASE 191 U/L (46-116); BUN 7 mg/dl (9-23); CHLORIDE 106 mmol/L (98-107); CHOLESTEROL 133 mg/dL (<200); GAMMA GLUTAMYL TRANSPEPTIDASE 63 U/L (0-73); LDL CHOLESTEROL 32 mg/dL (9-159); LIPASE 39 U/L (12-53); POTASSIUM 3.3 mmol/L (3.4-5.1); SGPT/ALT 16 U/L (10-49); T3 UPTAKE 25.2 % (22.4-36.7); THYROID STIM HORMONE (HS) 1.351 uIU/ml (0.550-4.780); THYROXINE (T4) TOTAL 5.5 ug/dl (4.5-10.9); TOTAL PROTEIN 7.3 gm/dL (6.0-8.0); TRIGLYCERIDES 64 mg/dl (<150)
[2022-10-04 17:32] LABS: VITAMIN D, 25-HYDROXY 75.7 ng/mL (30-100)
[2022-10-05 10:08] LABS: HBSAG Negative (Negative); HEP B CORE AB, IGM Negative (Negative); HEPATITIS C ANTIBODY Non Reactive (Non Reactive)
[2022-10-05 22:06] LABS: FATS, NEUTRAL Normal (.); FATS, TOTAL Normal (.)
== END | disposition home or self-care (01) ==
LOC: LAB 16:29
PROVIDERS: Family Medicine; ATTEND Internal Medicine Gastroenterology
DX: E55.9 Vitamin D deficiency, unspecified (principal); R53.83 Other fatigue; E78.5 Hyperlipidemia, unspecified; R79.89 Other specified abnormal findings of blood chemistry; R74.8 Abnormal levels of other serum enzymes; R19.7 Diarrhea, unspecified; R94.5 Abnormal results of liver function studies

== ENCOUNTER → 2022-11-06 | Outpatient (CLI) | payer OTHER | END | disposition home or self-care (01) | LOC: RAD 11:25 | PROVIDERS: ATTEND Family Medicine | DX: M19.011 Primary osteoarthritis, right shoulder (principal); M25.511 Pain in right shoulder ==

== ENCOUNTER 2022-12-05 13:25 | Emergency (ER) | payer OTHER ==
[~2022-12-05] VITALS: Ht 154.9 cm; Wt 59.0 kg
[2022-12-05 14:18] LABS: BASO % 0.8 % (0.0-1.0); EOS # 0.1 10*3/uL (0.0-0.4); EOS % 1.8 % (1.0-4.0); HEMATOCRIT 46.4 % (37.0-47.0); LYMPH # 2.4 10*3/uL (1.3-4.4); LYMPH % 49.2 % (27.0-41.0); MEAN CELL VOLUME 92.4 fl (81.0-99.0); MEAN CORPUSCULAR HGB 31.5 pg (27.0-31.0); MEAN CORPUSCULAR HGB CONC 34.1 g/dl (33.0-37.0); MEAN PLATELET VOLUME 8.9 fl (9.6-12.3); MONO # 0.4 10*3/uL (0.1-1.0); MONO % 8.8 % (3.0-9.0); NEUT # 1.9 10*3/uL (2.3-7.9); NEUT % 39.2 % (47.0-73.0); PLATELET COUNT AUTOMATED 184 10*3/uL (130-400); RED BLOOD COUNT 5.02 10*6/uL (4.10-5.10); RED CELL DISTRI WIDTH 14.8 % (0-14.5); WHITE BLOOD COUNT 4.9 10*3/uL (4.8-10.8)
[2022-12-05 14:40] LABS: ACT PARTIAL THROMBO TIME 31.4 SECONDS (20.0-32.1); ALKALINE PHOSPHATASE 158 U/L (46-116); BUN 6 mg/dl (9-23); CHLORIDE 106 mmol/L (98-107); INTERNATIONAL NORM RATIO 1.1 (2.0-3.5); LIPASE 36 U/L (12-53); SGPT/ALT 13 U/L (10-49); TOTAL PROTEIN 7.8 gm/dL (6.0-8.0)
[2022-12-05 15:01] LABS: BILIRUBIN 1+ (Negative); BLOOD Negative (Negative); CLARITY Cloudy (Clear); COLOR Dark Yellow (Yellow); GLUCOSE Negative (Negative); KETONE 1+ (Negative); LEUKO ESTERASE Trace (Negative); NITRITE Negative (Negative); PH 5.5 (4.5-8.0); SPECIFIC GRAVITY 1.025 (1.001-1.030)
[2022-12-05 15:10] LABS: BACTERIA 1+; EPITHELIAL CELLS 16-20; MUCOUS 1+
[2022-12-05] MEDS ORDERED: ONDANSETRON4 MG SL (17:09)
== END 2022-12-05 17:30 | disposition home or self-care (01) ==
LOC: ED 13:25
PROVIDERS: Emergency Medicine
DX: R10.13 Epigastric pain (principal); R11.2 Nausea with vomiting, unspecified; M19.90 Unspecified osteoarthritis, unspecified site; F41.9 Anxiety disorder, unspecified; K21.9 Gastro-esophageal reflux disease without esophagitis; I10 Essential (primary) hypertension; J45.909 Unspecified asthma, uncomplicated; Z90.49 Acquired absence of other specified parts of digestive tract; Z98.890 Other specified postprocedural states; Z95.5 Presence of coronary angioplasty implant and graft; F17.200 Nicotine dependence, unspecified, uncomplicated; F10.10 Alcohol abuse, uncomplicated

== ENCOUNTER 2023-04-20 16:38 | Emergency (ER) | payer OTHER ==
[~2023-04-20] VITALS: Ht 154.9 cm; Wt 56.7 kg
[~2023-04-20 16:38] MED LIST changes: +ONDANSETRON4 MG SL; +VANCOCIN125 MG PO; +ZOLOFT25 MG PO
[2023-04-20] MEDS ORDERED: PREGABALIN150 MG PO (16:57)
[2023-04-20 17:39] LABS: BASO % 0.3 % (0.0-1.0); EOS % 0.1 % (1.0-4.0); HEMATOCRIT 42.8 % (37.0-47.0); LYMPH # 1.8 10*3/uL (1.3-4.4); LYMPH % 26.1 % (27.0-41.0); MEAN CELL VOLUME 99.3 fl (81.0-99.0); MEAN CORPUSCULAR HGB 32.3 pg (27.0-31.0); MEAN CORPUSCULAR HGB CONC 32.5 g/dl (33.0-37.0); MEAN PLATELET VOLUME 8.9 fl (9.6-12.3); MONO # 0.4 10*3/uL (0.1-1.0); MONO % 6.1 % (3.0-9.0); NEUT # 4.7 10*3/uL (2.3-7.9); NEUT % 66.8 % (47.0-73.0); PLATELET COUNT AUTOMATED 86 10*3/uL (130-400); RED BLOOD COUNT 4.31 10*6/uL (4.10-5.10); RED CELL DISTRI WIDTH 14.6 % (0-14.5)
[2023-04-20 18:04] LABS: ALKALINE PHOSPHATASE 184 U/L (46-116); BUN 8 mg/dl (9-23); CHLORIDE 104 mmol/L (98-107); LIPASE 127 U/L (12-53); POTASSIUM 3.5 mmol/L (3.4-5.1); SGPT/ALT 14 U/L (5-49)
[2023-04-20] MEDS ORDERED: PERCOCET 5-3251 EACH PO (18:40)
[2023-04-20] MEDS ORDERED: PREDNISONE20 M1 PO (18:40)
[2023-04-20] MEDS ORDERED: AVPAK AZITHROM250 M1 PO (18:40)
[2023-04-20] MEDS ORDERED: ONDANSETRON4 MG SL (18:40)
== END 2023-04-20 18:42 | disposition home or self-care (01) ==
LOC: ED 16:38
PROVIDERS: Emergency Medicine
DX: J44.1 Chronic obstructive pulmonary disease with (acute) exacerbation (principal); K85.20 Alcohol induced acute pancreatitis without necrosis or infection; I10 Essential (primary) hypertension; K21.9 Gastro-esophageal reflux disease without esophagitis; F32.A Depression, unspecified; E78.5 Hyperlipidemia, unspecified; F41.9 Anxiety disorder, unspecified; R07.81 Pleurodynia; M19.90 Unspecified osteoarthritis, unspecified site; Z20.822 Contact with and (suspected) exposure to COVID-19; Z95.5 Presence of coronary angioplasty implant and graft; Z90.49 Acquired absence of other specified parts of digestive tract; Z98.890 Other specified postprocedural states; Z98.51 Tubal ligation status; F17.210 Nicotine dependence, cigarettes, uncomplicated

== ENCOUNTER → 2023-08-02 | Outpatient (CLI) | payer OTHER ==
[~2023-08-02] MED LIST changes: +AVPAK AZITHROM250 M1 PO; +PERCOCET 5-3251 EACH PO; +PREDNISONE20 M1 PO; +PREGABALIN150 MG PO
[2023-08-02 10:49] LABS: BASO % 0.4 % (0.0-1.0); EOS # 0.3 10*3/uL (0.0-0.4); EOS % 4.2 % (1.0-4.0); HEMATOCRIT 42.2 % (37.0-47.0); LYMPH # 3.1 10*3/uL (1.3-4.4); LYMPH % 46.1 % (27.0-41.0); MEAN CELL VOLUME 97.7 fl (81.0-99.0); MEAN CORPUSCULAR HGB 30.8 pg (27.0-31.0); MEAN CORPUSCULAR HGB CONC 31.5 g/dl (33.0-37.0); MEAN PLATELET VOLUME 9.6 fl (9.6-12.3); MONO # 0.4 10*3/uL (0.1-1.0); MONO % 5.3 % (3.0-9.0); NEUT # 2.9 10*3/uL (2.3-7.9); NEUT % 43.7 % (47.0-73.0); PLATELET COUNT AUTOMATED 148 10*3/uL (130-400); RED BLOOD COUNT 4.32 10*6/uL (4.10-5.10); RED CELL DISTRI WIDTH 13.9 % (0-14.5); RETICULOCYTE % 1.01 % (0.50-2.50); WHITE BLOOD COUNT 6.7 10*3/uL (4.8-10.8)
[2023-08-02 10:55] LABS: BILIRUBIN Negative (Negative); BLOOD Negative (Negative); CLARITY Clear (Clear); COLOR Yellow (Yellow); GLUCOSE Negative (Negative); KETONE Trace (Negative); LEUKO ESTERASE Negative (Negative); NITRITE Negative (Negative); PH 5.5 (4.5-8.0); SPECIFIC GRAVITY 1.025 (1.001-1.030)
[2023-08-02 11:15] LABS: VITAMIN D, 25-HYDROXY 62.6 ng/mL (30-100)
[2023-08-02 11:33] LABS: ALKALINE PHOSPHATASE 134 U/L (46-116); BUN 12 mg/dl (9-23); CHLORIDE 105 mmol/L (98-107); CHOLESTEROL 150 mg/dL (<200); GAMMA GLUTAMYL TRANSPEPTIDASE 60 U/L (0-73); LDL CHOLESTEROL 49 mg/dL (9-159); POTASSIUM 3.4 mmol/L (3.4-5.1); SGPT/ALT 9 U/L (5-49); T3 UPTAKE 24.2 % (22.4-36.7); THYROXINE (T4) TOTAL 6.4 ug/dl (4.5-10.9); TOTAL PROTEIN 7.5 gm/dL (6.0-8.0); TRIGLYCERIDES 98 mg/dl (<150); URIC ACID 5.5 mg/dL (3.1-7.8)
[2023-08-02 12:13] LABS: BACTERIA TRACE; WBC 0-2 wbc/hpf (0-5)
[2023-08-05 13:06] LABS: ANTI-DSDNA ANTIBODIES 17 IU/mL (0-9)
== END | disposition home or self-care (01) ==
LOC: LAB 10:21
PROVIDERS: ATTEND Family Medicine
DX: E78.5 Hyperlipidemia, unspecified (principal); E55.9 Vitamin D deficiency, unspecified; R79.89 Other specified abnormal findings of blood chemistry; R74.8 Abnormal levels of other serum enzymes

== ENCOUNTER 2023-10-12 12:22 | Emergency (ER) | payer OTHER ==
[~2023-10-12] VITALS: Wt 61.2 kg
== END 2023-10-12 13:53 | disposition home or self-care (01) ==
LOC: ED 12:22
DX: S52.501A Unspecified fracture of the lower end of right radius, initial encounter for closed fracture (principal); M19.90 Unspecified osteoarthritis, unspecified site; F41.9 Anxiety disorder, unspecified; F32.A Depression, unspecified; K21.9 Gastro-esophageal reflux disease without esophagitis; I10 Essential (primary) hypertension; J45.909 Unspecified asthma, uncomplicated; Z95.5 Presence of coronary angioplasty implant and graft; F10.10 Alcohol abuse, uncomplicated; F17.200 Nicotine dependence, unspecified, uncomplicated; Z90.49 Acquired absence of other specified parts of digestive tract; Z98.890 Other specified postprocedural states; W18.09XA Striking against other object with subsequent fall, initial encounter; Y93.89 Activity, other specified; Y92.89 Other specified places as the place of occurrence of the external cause; Y99.8 Other external cause status

== ENCOUNTER → 2023-10-14 | Outpatient (CLI) | payer OTHER | END | disposition home or self-care (01) | LOC: ORTHO 10:45 | PROVIDERS: ATTEND Orthopaedic Surgery | DX: M19.021 Primary osteoarthritis, right elbow (principal); M25.521 Pain in right elbow ==

== ENCOUNTER → 2023-10-23 | Outpatient (CLI) | payer OTHER | END | disposition home or self-care (01) | LOC: ORTHO 10-21 02:51 | PROVIDERS: ATTEND Orthopaedic Surgery | DX: S52.611D Displaced fracture of right ulna styloid process, subsequent encounter for closed fracture with routine healing (principal); S52.531D Colles' fracture of right radius, subsequent encounter for closed fracture with routine healing; X58.XXXD Exposure to other specified factors, subsequent encounter ==

== ENCOUNTER → 2023-11-01 | Outpatient (CLI) | payer OTHER | END | disposition home or self-care (01) | LOC: ORTHO 00:41 | PROVIDERS: ATTEND Orthopaedic Surgery | DX: S52.611D Displaced fracture of right ulna styloid process, subsequent encounter for closed fracture with routine healing (principal); S52.391D Other fracture of shaft of radius, right arm, subsequent encounter for closed fracture with routine healing; X58.XXXD Exposure to other specified factors, subsequent encounter ==

== ENCOUNTER → 2023-11-15 | Outpatient (CLI) | payer OTHER | END | disposition home or self-care (01) | LOC: ORTHO 10:59 | PROVIDERS: ATTEND Orthopaedic Surgery | DX: S52.611A Displaced fracture of right ulna styloid process, initial encounter for closed fracture (principal); X58.XXXA Exposure to other specified factors, initial encounter; Y93.89 Activity, other specified; Y92.89 Other specified places as the place of occurrence of the external cause; Y99.8 Other external cause status ==

== ENCOUNTER → 2023-12-20 | Outpatient (CLI) | payer OTHER | END | disposition home or self-care (01) | LOC: ORTHO 03:00 | PROVIDERS: ATTEND Orthopaedic Surgery | DX: S52.531D Colles' fracture of right radius, subsequent encounter for closed fracture with routine healing (principal); M79.89 Other specified soft tissue disorders; X58.XXXD Exposure to other specified factors, subsequent encounter ==

== ENCOUNTER 2024-01-22 09:35 | Emergency (ER) | payer SELFPAY ==
[~2024-01-22] VITALS: Wt 58.1 kg
[2024-01-22] MEDS ORDERED: MULTIVITAMIN CONCENTRATE (IV) 10 ML,Thiamine 100 MG,FOLIC ACID 1 MG in SODIUM CHLORIDE ... IV ONE (09:40)
[2024-01-22 09:52] LABS: BASO # 0.1 10*3/uL (0.0-0.1); BASO % 1.1 % (0.0-1.0); EOS # 0.1 10*3/uL (0.0-0.4); EOS % 0.8 % (1.0-4.0); HEMATOCRIT 41.6 % (37.0-47.0); LYMPH # 2.8 10*3/uL (1.3-4.4); LYMPH % 46.1 % (27.0-41.0); MEAN CORPUSCULAR HGB 33.6 pg (27.0-31.0); MEAN CORPUSCULAR HGB CONC 34.6 g/dl (33.0-37.0); MEAN PLATELET VOLUME 8.1 fl (9.6-12.3); MONO # 0.6 10*3/uL (0.1-1.0); NEUT # 2.6 10*3/uL (2.3-7.9); NEUT % 42.7 % (47.0-73.0); PLATELET COUNT AUTOMATED 158 10*3/uL (130-400); RED BLOOD COUNT 4.29 10*6/uL (4.10-5.10); WHITE BLOOD COUNT 6.1 10*3/uL (4.8-10.8)
[2024-01-22 10:30] LABS: BUN 7 mg/dl (9-23); CHLORIDE 97 mmol/L (98-107); POTASSIUM 3.2 mmol/L (3.4-5.1)
[2024-01-22 10:33] LABS: ETHYL ALCOHOL 420.1 mg/dl (<3)
[2024-01-22] MEDS ORDERED: IBUPROFEN 400 MG TAB PO ONE ×2 (11:15→17:15)
[2024-01-22 11:53] LABS: URINE AMPHETAMINES Negative (1000ng/ml); URINE BARBITURATES Negative (200ng/ml); URINE BENZODIAZEPINES Negative (200ng/ml); URINE CANNABINOIDS (THC) Positive (50ng/ml); URINE COCAINE Negative (300ng/ml); URINE METHADONE Negative (300ng/ml); URINE OPIATES Negative (300ng/ml); URINE PHENCYCLIDINE Negative (25ng/ml)
[2024-01-22] MEDS ORDERED: LORazepam 2 MG/ML VIAL IV ONE (18:50)
== END 2024-01-23 05:59 | disposition home or self-care (01) ==
LOC: ED 09:35
PROVIDERS: Internal Medicine
DX: S82.441A Displaced spiral fracture of shaft of right fibula, initial encounter for closed fracture (principal); S82.301A Unspecified fracture of lower end of right tibia, initial encounter for closed fracture; F10.129 Alcohol abuse with intoxication, unspecified; E87.8 Other disorders of electrolyte and fluid balance, not elsewhere classified; F17.200 Nicotine dependence, unspecified, uncomplicated; Z79.82 Long term (current) use of aspirin; Z79.899 Other long term (current) drug therapy; Z98.890 Other specified postprocedural states; Z90.49 Acquired absence of other specified parts of digestive tract; W18.39XA Other fall on same level, initial encounter; Y93.89 Activity, other specified; Y92.89 Other specified places as the place of occurrence of the external cause; Y99.8 Other external cause status; Y90.6 Blood alcohol level of 120-199 mg/100 ml

== ENCOUNTER 2024-01-24 11:10 | Inpatient (IN) | payer SELFPAY ==
[~2024-01-24] VITALS: Ht 154.9 cm; Wt 65.9 kg
[2024-01-24 11:15] VITALS: BP 120/80
[2024-01-24] MEDS ORDERED: MORPHINE Sulfate 2 MG/ML SYR IV ONE (11:15)
[2024-01-24] MEDS ORDERED: Ondansetron Hydrochloride 4 MG/2 ML VIAL IV ONE (11:15)
[2024-01-24] MEDS ORDERED: SODIUM CHLORIDE 0.9% 1,000 ML IV ONE ×2 (11:15→14:55)
[2024-01-24 11:29] LABS: BASO # 0.1 10*3/uL (0.0-0.1); EOS # 0.1 10*3/uL (0.0-0.4); EOS % 0.8 % (1.0-4.0); HEMATOCRIT 36.9 % (37.0-47.0); LYMPH # 2.5 10*3/uL (1.3-4.4); LYMPH % 41.2 % (27.0-41.0); MEAN CELL VOLUME 95.3 fl (81.0-99.0); MEAN CORPUSCULAR HGB 33.6 pg (27.0-31.0); MEAN CORPUSCULAR HGB CONC 35.2 g/dl (33.0-37.0); MEAN PLATELET VOLUME 8.2 fl (9.6-12.3); MONO # 0.7 10*3/uL (0.1-1.0); MONO % 12.4 % (3.0-9.0); NEUT # 2.6 10*3/uL (2.3-7.9); NEUT % 44.3 % (47.0-73.0); PLATELET COUNT AUTOMATED 137 10*3/uL (130-400); RED BLOOD COUNT 3.87 10*6/uL (4.10-5.10); RED CELL DISTRI WIDTH 15.1 % (0-14.5)
[2024-01-24 11:37] VITALS: BP 112/73
[2024-01-24 11:46] LABS: CHLORIDE 104 mmol/L (98-107); POTASSIUM 3.2 mmol/L (3.4-5.1)
[2024-01-24 11:55] LABS: BUN < 5 mg/dl (9-23)
[2024-01-24] MEDS ORDERED: TEMAZEPAM 15 MG CAP PO PRN (12:45)
[2024-01-24] MEDS ORDERED: Magnesium Hydroxide 30 ML UDC PO PRN (12:45)
[2024-01-24] MEDS ORDERED: ACETAMINOPHEN 325 MG TAB PO PRN (12:45)
[2024-01-24] MEDS ORDERED: Acetaminophen/Hydrocodone 5 MG/325 MG TABLET PO PRN (12:45)
[2024-01-24] MEDS ORDERED: BISACODYL 5 MG TAB PO PRN (12:45)
[2024-01-24] MEDS ORDERED: BISACODYL 10 MG SUPP R PRN (12:45)
[2024-01-24] MEDS ORDERED: MORPHINE Sulfate 2 MG/ML SYR IV PRN (12:45)
[2024-01-24] MEDS ORDERED: ACETAMINOPHEN 650 MG SUPP R PRN (12:45)
[2024-01-24] MEDS ORDERED: hydrOXYzine 50 MG CAP PO PRN (12:50)
[2024-01-24] MEDS ORDERED: METHOCARBAMOL 750 MG TAB PO PRN (12:50)
[2024-01-24] MEDS ORDERED: Water, Sterile 10 ML VIAL IV PRN (12:50)
[2024-01-24] MEDS ORDERED: LORazepam 2 MG/ML VIAL IV PRN (12:50)
[2024-01-24] MEDS ORDERED: MULTIVITAMIN CONCENTRATE (IV) 10 ML,Thiamine 100 MG,FOLIC ACID 1 MG in SODIUM CHLORIDE ... IV ONE (12:50)
[2024-01-24] MEDS ORDERED: Dicyclomine Hydrochloride 20 MG TAB PO PRN (12:50)
[2024-01-24 13:17] VITALS: BP 120/84
[2024-01-24] MEDS ORDERED: LORazepam 1 MG TAB PO SCH (14:00)
[2024-01-24] MEDS ORDERED: MG-AL HYDROXIDE/SIMETICONE 30 ML UDC PO PRN (14:05)
[2024-01-24] MEDS ORDERED: IOHEXOL 350 MG/ML 100 ML VIAL IV ONE ×2 (14:45→17:10)
[2024-01-24] MEDS ORDERED: SODIUM CHLORIDE 0.9% 100 ML BAG IV ONE ×2 (14:45→17:10)
[2024-01-24 14:57] LABS: ALKALINE PHOSPHATASE 160 U/L (46-116); CHLORIDE 106 mmol/L (98-107); POTASSIUM 3.9 mmol/L (3.4-5.1); SGPT/ALT 31 U/L (5-49); TOTAL PROTEIN 6.9 gm/dL (6.0-8.0)
[2024-01-24 14:58] LABS: BUN < 5 mg/dl (9-23)
[2024-01-24] MEDS ORDERED: ASPIRIN 325 MG TAB PO ONE (15:00)
[2024-01-24] MEDS ORDERED: POTASSIUM CHLORIDE 20 MEQ TAB PO ONE (15:20)
[2024-01-24 19:33] VITALS: BP 110/65
[2024-01-24 21:53] VITALS: BP 119/64
[2024-01-24] MEDS ORDERED: Albuterol Sulfate 2.5 MG/3 ML VIAL NEB PRN (22:25)
[2024-01-25] VITALS: BP 105/47
[2024-01-25] MEDS ORDERED: LORazepam 2 MG/ML VIAL IV SCH (02:00)
[2024-01-25 04:24] LABS: BILIRUBIN Negative (Negative); BLOOD Negative (Negative); CLARITY Clear (Clear); COLOR Yellow (Yellow); GLUCOSE Negative (Negative); KETONE Trace (Negative); LEUKO ESTERASE Negative (Negative); NITRITE Negative (Negative); SPECIFIC GRAVITY >= 1.030 (1.001-1.030)
[2024-01-25 04:31] LABS: URINE AMPHETAMINES Negative (1000ng/ml); URINE BARBITURATES Negative (200ng/ml); URINE BENZODIAZEPINES Negative (200ng/ml); URINE CANNABINOIDS (THC) Positive (50ng/ml); URINE COCAINE Negative (300ng/ml); URINE METHADONE Negative (300ng/ml); URINE OPIATES Positive (300ng/ml); URINE PHENCYCLIDINE Negative (25ng/ml)
[2024-01-25 04:38] LABS: EPITHELIAL CELLS 16-20
[2024-01-25 04:39] LABS: WBC 0-2 wbc/hpf (0-5)
[2024-01-25] MEDS ORDERED: Pantoprazole Sodium 40 MG TAB PO SCH (06:00)
[2024-01-25 07:24] LABS: CHLORIDE 111 mmol/L (98-107); CHOLESTEROL 119 mg/dL (<200); FREE T4 0.92 ng/dl (0.89-1.76); LDL CHOLESTEROL 33 mg/dL (9-159); POTASSIUM 4.3 mmol/L (3.4-5.1); TRIGLYCERIDES 41 mg/dl (<150)
[2024-01-25 07:28] LABS: BASO # 0.1 10*3/uL (0.0-0.1); EOS # 0.1 10*3/uL (0.0-0.4); EOS % 1.6 % (1.0-4.0); HEMATOCRIT 33.4 % (37.0-47.0); LYMPH # 1.8 10*3/uL (1.3-4.4); LYMPH % 35.7 % (27.0-41.0); MEAN CORPUSCULAR HGB 33.1 pg (27.0-31.0); MEAN CORPUSCULAR HGB CONC 32.6 g/dl (33.0-37.0); MEAN PLATELET VOLUME 8.9 fl (9.6-12.3); MONO # 0.6 10*3/uL (0.1-1.0); MONO % 12.5 % (3.0-9.0); NEUT # 2.5 10*3/uL (2.3-7.9); NEUT % 48.6 % (47.0-73.0); PLATELET COUNT AUTOMATED 108 10*3/uL (130-400); RED BLOOD COUNT 3.29 10*6/uL (4.10-5.10); RED CELL DISTRI WIDTH 15.2 % (0-14.5)
[2024-01-25 07:33] LABS: BUN < 5 mg/dl (9-23)
[2024-01-25 07:34] LABS: MEAN CELL VOLUME 101.5 fl (81.0-99.0)
[2024-01-25 08:00] VITALS: BP 127/68
[2024-01-25] MEDS ORDERED: FOLIC ACID 1 MG TAB PO SCH (10:00)
[2024-01-25] MEDS ORDERED: MULTIVITAMIN 1 TAB TAB PO SCH (10:00)
[2024-01-25] MEDS ORDERED: Metoprolol Tartrate 100 MG TAB PO SCH (10:00)
[2024-01-25] MEDS ORDERED: Thiamine 100 MG TAB PO SCH (10:00)
[2024-01-25 12:00] VITALS: BP 111/78
[2024-01-25 18:00] VITALS: BP 126/65
[2024-01-25 20:00] VITALS: BP 114/36
[2024-01-25] MEDS ORDERED: LORazepam 1 MG TAB PO SCH (22:00)
[2024-01-26] VITALS: BP 111/48
[2024-01-26 06:32] LABS: CHLORIDE 105 mmol/L (98-107); POTASSIUM 3.8 mmol/L (3.4-5.1)
[2024-01-26 06:38] LABS: BUN < 5 mg/dl (9-23)
[2024-01-26 06:52] LABS: BASO % 0.8 % (0.0-1.0); EOS # 0.1 10*3/uL (0.0-0.4); EOS % 2.5 % (1.0-4.0); HEMATOCRIT 31.3 % (37.0-47.0); LYMPH # 1.8 10*3/uL (1.3-4.4); LYMPH % 36.7 % (27.0-41.0); MEAN CELL VOLUME 98.7 fl (81.0-99.0); MEAN CORPUSCULAR HGB 33.1 pg (27.0-31.0); MEAN CORPUSCULAR HGB CONC 33.5 g/dl (33.0-37.0); MEAN PLATELET VOLUME 9.4 fl (9.6-12.3); MONO # 0.5 10*3/uL (0.1-1.0); MONO % 10.2 % (3.0-9.0); NEUT # 2.4 10*3/uL (2.3-7.9); NEUT % 49.6 % (47.0-73.0); PLATELET COUNT AUTOMATED 110 10*3/uL (130-400); RED BLOOD COUNT 3.17 10*6/uL (4.10-5.10); RED CELL DISTRI WIDTH 14.2 % (0-14.5); WHITE BLOOD COUNT 4.8 10*3/uL (4.8-10.8)
[2024-01-26 08:00] VITALS: BP 125/57
[2024-01-26] MEDS ORDERED: Enoxaparin Sodium 40 MG/0.4 ML SYR SC SCH (10:00)
[2024-01-26] MEDS ORDERED: Sertraline Hydrochloride 50 MG TAB PO SCH (11:35)
[2024-01-26 12:00] VITALS: BP 153/77
[2024-01-26] MEDS ORDERED: Acetaminophen/Hydrocodone 5 MG/325 MG TABLET PO SCH (12:00)
[2024-01-26] MEDS ORDERED: Nicotine 21 MG PATCH T SCH (12:00)
[2024-01-26 16:00] VITALS: BP 138/70
[2024-01-26 20:00] VITALS: BP 141/72
[2024-01-27] VITALS: BP 128/82
[2024-01-27] MEDS ORDERED: LORazepam 1 MG TAB PO SCH
[2024-01-27 05:17] LABS: CHLORIDE 102 mmol/L (98-107); POTASSIUM 3.7 mmol/L (3.4-5.1)
[2024-01-27 05:19] LABS: BUN < 5 mg/dl (9-23)
[2024-01-27 06:30] LABS: BASO # 0.1 10*3/uL (0.0-0.1); BASO % 0.9 % (0.0-1.0); EOS # 0.1 10*3/uL (0.0-0.4); EOS % 2.1 % (1.0-4.0); HEMATOCRIT 32.5 % (37.0-47.0); LYMPH # 1.8 10*3/uL (1.3-4.4); LYMPH % 32.5 % (27.0-41.0); MEAN CELL VOLUME 99.7 fl (81.0-99.0); MEAN CORPUSCULAR HGB 33.1 pg (27.0-31.0); MEAN CORPUSCULAR HGB CONC 33.2 g/dl (33.0-37.0); MEAN PLATELET VOLUME 9.4 fl (9.6-12.3); MONO # 0.3 10*3/uL (0.1-1.0); MONO % 5.7 % (3.0-9.0); NEUT # 3.3 10*3/uL (2.3-7.9); NEUT % 58.3 % (47.0-73.0); PLATELET COUNT AUTOMATED 129 10*3/uL (130-400); RED BLOOD COUNT 3.26 10*6/uL (4.10-5.10); RED CELL DISTRI WIDTH 13.6 % (0-14.5); WHITE BLOOD COUNT 5.6 10*3/uL (4.8-10.8)
[2024-01-27 08:00] VITALS: BP 141/72
[2024-01-27] MEDS ORDERED: ALBUTEROL SULF HFA 1 (10:02)
[2024-01-27 12:00] VITALS: BP 142/81
[2024-01-27] MEDS ORDERED: SERTRALINE HYD100 MG PO (13:55)
[2024-01-27] MEDS ORDERED: SERTRALINE HYDR25 MG PO (13:55)
[2024-01-27] MEDS ORDERED: GABAPENTIN100 M2 PO (13:57)
[2024-01-27 16:00] VITALS: BP 145/80
[2024-01-27] MEDS ORDERED: LORazepam 1 MG TAB PO PRN (18:00)
[2024-01-27 20:00] VITALS: BP 145/77
[2024-01-28] VITALS (10 sets, daily range): BP systolic 105–141; BP diastolic 34–76
[2024-01-28 05:32] LABS: CHLORIDE 101 mmol/L (98-107); POTASSIUM 3.4 mmol/L (3.4-5.1)
[2024-01-28 05:41] LABS: BUN < 5 mg/dl (9-23)
[2024-01-28 06:16] LABS: BASO % 0.6 % (0.0-1.0); EOS # 0.2 10*3/uL (0.0-0.4); EOS % 3.1 % (1.0-4.0); HEMATOCRIT 33.7 % (37.0-47.0); LYMPH # 1.7 10*3/uL (1.3-4.4); LYMPH % 33.9 % (27.0-41.0); MEAN CELL VOLUME 96.8 fl (81.0-99.0); MEAN CORPUSCULAR HGB CONC 34.1 g/dl (33.0-37.0); MONO # 0.5 10*3/uL (0.1-1.0); MONO % 10.2 % (3.0-9.0); NEUT # 2.5 10*3/uL (2.3-7.9); NEUT % 51.8 % (47.0-73.0); PLATELET COUNT AUTOMATED 140 10*3/uL (130-400); RED BLOOD COUNT 3.48 10*6/uL (4.10-5.10); RED CELL DISTRI WIDTH 13.7 % (0-14.5); WHITE BLOOD COUNT 4.9 10*3/uL (4.8-10.8)
[2024-01-28] MEDS ORDERED: Lactated Ringer's Solution 1,000 ML IV ONE ×2 (08:15→08:38)
[2024-01-28] MEDS ORDERED: Ropivacaine Hydrochloride 5 MG/ML 20 ML AMP IJ ONE (08:36)
[2024-01-28] MEDS ORDERED: Bupivacaine Hydrochloride/Ep2 30 ML VIAL ONE (08:37)
[2024-01-28] MEDS ORDERED: ACETAMINOPHEN 100 ML IV ONE (08:37)
[2024-01-28] MEDS ORDERED: ceFAZolin sodium/sodium chlor 20 ML IV ONE (08:38)
[2024-01-28] MEDS ORDERED: CEFAZOLIN SODIUM 2 GM IV ONE (14:00)
[2024-01-28] MEDS ORDERED: ceFAZolin sodium 2GM/20ML IV ONE (14:00)
[2024-01-28] MEDS ORDERED: Glycerin/Hypromellose/Polyet 300 DRP BOT OPH ONE (15:05)
[2024-01-28] MEDS ORDERED: LORazepam 2 MG/ML VIAL IV ONE (15:55)
[2024-01-28] MEDS ORDERED: ceFAZolin sodium 1 GM in SYRINGE INFUSION 10 ML IV SCH (16:00)
[2024-01-29] VITALS: BP 104/64
[2024-01-29 06:15] LABS: BUN 9 mg/dl (9-23); CHLORIDE 102 mmol/L (98-107); POTASSIUM 3.2 mmol/L (3.4-5.1)
[2024-01-29 06:24] LABS: BASO % 0.3 % (0.0-1.0); EOS % 0.5 % (1.0-4.0); HEMATOCRIT 32.6 % (37.0-47.0); LYMPH # 2.4 10*3/uL (1.3-4.4); MEAN CELL VOLUME 98.5 fl (81.0-99.0); MEAN CORPUSCULAR HGB 33.5 pg (27.0-31.0); MEAN PLATELET VOLUME 8.9 fl (9.6-12.3); MONO # 0.7 10*3/uL (0.1-1.0); MONO % 9.5 % (3.0-9.0); NEUT # 4.2 10*3/uL (2.3-7.9); NEUT % 57.2 % (47.0-73.0); PLATELET COUNT AUTOMATED 164 10*3/uL (130-400); RED BLOOD COUNT 3.31 10*6/uL (4.10-5.10); WHITE BLOOD COUNT 7.3 10*3/uL (4.8-10.8)
[2024-01-29 08:00] VITALS: BP 114/63
[2024-01-29] MEDS ORDERED: ASPIRIN ENTERIC COATED 81 MG TAB PO SCH (10:00)
[2024-01-29 12:00] VITALS: BP 91/53
[2024-01-29] MEDS ORDERED: Midazolam Hydrochloride 2 MG/2 ML VIAL IV ONE (13:42)
[2024-01-29] MEDS ORDERED: Dexamethasone Sodium Phospha 4 MG/ML VIAL IV ONE (13:42)
[2024-01-29] MEDS ORDERED: SEVOFLURANE 250 ML BOT INH ONE (13:42)
[2024-01-29] MEDS ORDERED: PROPOFOL 200 MG/20 ML VIAL IV ONE (13:42)
[2024-01-29] MEDS ORDERED: Lidocaine Hydrochloride 5 ML VIAL IV ONE (13:42)
[2024-01-29] MEDS ORDERED: Ondansetron Hydrochloride 4 MG/2 ML VIAL IV ONE (13:42)
[2024-01-29 16:00] VITALS: BP 90/60
[2024-01-29 20:00] VITALS: BP 99/65
[2024-01-30] VITALS: BP 108/59
[2024-01-30 08:00] VITALS: BP 124/72
[2024-01-30 12:00] VITALS: BP 124/68
[2024-01-30 16:00] VITALS: BP 125/63
[2024-01-30 20:00] VITALS: BP 104/65
[2024-01-31] VITALS: BP 123/67
[2024-01-31 08:00] VITALS: BP 111/65
[2024-01-31 12:00] VITALS: BP 109/79
[2024-01-31 16:00] VITALS: BP 135/66
[2024-01-31] MEDS ORDERED: ASPIRIN ADULT L81 M2 PO (17:06)
[2024-01-31] MEDS ORDERED: ATARAX,VISTARIL50 MG PO (17:06)
[2024-01-31] MEDS ORDERED: NATURE'S BLEND100 M2 PO (17:06)
[2024-01-31] MEDS ORDERED: TAB-A-VITE TA400 MCG PO (17:06)
[2024-01-31 20:00] VITALS: BP 119/66
[2024-01-31] MEDS ORDERED: TEMAZEPAM 15 MG CAP PO PRN (21:00)
[2024-02-01] VITALS: BP 114/67
[2024-02-01 08:00] VITALS: BP 151/82
[2024-02-01 12:00] VITALS: BP 119/80
[2024-02-01 16:00] VITALS: BP 137/72
[2024-02-01 20:00] VITALS: BP 153/84
== END 2024-02-01 20:29 | DRG 492 ==
LOC: ED 11:10 → 4E 12:20 → EDHOLD 12:20 → 4E 21:12
PROVIDERS: Emergency Medicine; Student in an Organized Health Care Education/Training Program; ADMIT Internal Medicine; ATTEND Internal Medicine
PROC: 0QSG04Z Reposition Right Tibia with Internal Fixation Device, Open Approach (ICD-10-PCS; principal; 2024-01-28)
PROC: 0SSF04Z Reposition Right Ankle Joint with Internal Fixation Device, Open Approach (ICD-10-PCS; 2024-01-28)
PROC: 3E0T3BZ Introduction of Anesthetic Agent into Peripheral Nerves and Plexi, Percutaneous Approach (ICD-10-PCS; 2024-01-28)
DX: S82.871A Displaced pilon fracture of right tibia, initial encounter for closed fracture (principal); G93.41 Metabolic encephalopathy; E87.6 Hypokalemia; F10.929 Alcohol use, unspecified with intoxication, unspecified; S82.861A Displaced Maisonneuve's fracture of right leg, initial encounter for closed fracture; I25.10 Atherosclerotic heart disease of native coronary artery without angina pectoris; I10 Essential (primary) hypertension; F41.1 Generalized anxiety disorder; K21.9 Gastro-esophageal reflux disease without esophagitis; S93.431A Sprain of tibiofibular ligament of right ankle, initial encounter; R74.01 Elevation of levels of liver transaminase levels; R26.2 Difficulty in walking, not elsewhere classified; G31.2 Degeneration of nervous system due to alcohol; Z82.49 Family history of ischemic heart disease and other diseases of the circulatory system; Z83.6 Family history of other diseases of the respiratory system; Z80.0 Family history of malignant neoplasm of digestive organs; Z87.81 Personal history of (healed) traumatic fracture; W18.39XA Other fall on same level, initial encounter; Y93.89 Activity, other specified; Y92.89 Other specified places as the place of occurrence of the external cause; Y99.8 Other external cause status

== ENCOUNTER → 2024-02-12 | Outpatient (CLI) | payer SELFPAY ==
[~2024-02-12] MED LIST changes: +ALBUTEROL SULF HFA 1; +ASPIRIN ADULT L81 M2 PO; +ATARAX,VISTARIL50 MG PO; +GABAPENTIN100 M2 PO; +NATURE'S BLEND100 M2 PO; +SERTRALINE HYD100 MG PO; +SERTRALINE HYDR25 MG PO; +TAB-A-VITE TA400 MCG PO
== END | disposition home or self-care (01) ==
LOC: ORTHO 03:29
PROVIDERS: ATTEND Orthopaedic Surgery
DX: S82.851A Displaced trimalleolar fracture of right lower leg, initial encounter for closed fracture (principal); M77.32 Calcaneal spur, left foot; M79.89 Other specified soft tissue disorders; X58.XXXA Exposure to other specified factors, initial encounter; Y93.89 Activity, other specified; Y92.89 Other specified places as the place of occurrence of the external cause; Y99.8 Other external cause status

== ENCOUNTER → 2024-03-10 | Outpatient (CLI) | payer SELFPAY | END | disposition home or self-care (01) | LOC: ORTHO 02:02 | PROVIDERS: ATTEND Orthopaedic Surgery | DX: S82.861D Displaced Maisonneuve's fracture of right leg, subsequent encounter for closed fracture with routine healing (principal); M77.31 Calcaneal spur, right foot; X58.XXXD Exposure to other specified factors, subsequent encounter ==

== ENCOUNTER → 2024-04-16 | Outpatient (CLI) | payer MEDICARE, MEDICAID | END | disposition home or self-care (01) | LOC: ORTHO 02:20 | PROVIDERS: ATTEND Orthopaedic Surgery | DX: S82.861A Displaced Maisonneuve's fracture of right leg, initial encounter for closed fracture (principal); M19.071 Primary osteoarthritis, right ankle and foot; X58.XXXA Exposure to other specified factors, initial encounter; Y93.89 Activity, other specified; Y92.89 Other specified places as the place of occurrence of the external cause; Y99.8 Other external cause status ==

== ENCOUNTER → 2024-05-15 | Outpatient (CLI) | payer OTHER | END | disposition home or self-care (01) | LOC: ORTHO 00:34 | PROVIDERS: ATTEND Orthopaedic Surgery | DX: S82.871D Displaced pilon fracture of right tibia, subsequent encounter for closed fracture with routine healing (principal); X58.XXXD Exposure to other specified factors, subsequent encounter ==

== ENCOUNTER → 2024-05-28 | Day surgery (SDC) | payer OTHER ==
[2024-05-27 15:42] LABS: BUN 9 mg/dl (9-23); CHLORIDE 101 mmol/L (98-107); POTASSIUM 4.7 mmol/L (3.4-5.1)
[~2024-05-28] VITALS: Ht 154.9 cm; Wt 59.0 kg
[~2024-05-28] MED LIST changes: +Bupivacaine Hydrochloride/Ep2 30 ML VIAL ONE; +Dexamethasone Sodium Phospha 4 MG/ML VIAL IV ONE; +Lactated Ringer's Solution 1,000 ML IV ONE; +Lidocaine Hydrochloride 2% 5 ML SDV IV ONE; +Ondansetron Hydrochloride 4 MG/2 ML VIAL IV ONE; +PROPOFOL 200 MG/20 ML VIAL IV ONE; +SEVOFLURANE 250 ML BOT INH ONE; +ceFAZolin sodium/sodium chlor 20 ML IV ONE
[2024-05-28 07:04] VITALS: BP 136/74
[2024-05-28 08:07] VITALS: BP 148/92
[2024-05-28 08:22] VITALS: BP 140/72
[2024-05-28 08:37] VITALS: BP 138/70
[2024-05-28 08:52] VITALS: BP 135/64
== END | disposition home or self-care (01) ==
LOC: SDC 05-25 08:45
PROVIDERS: ATTEND Orthopaedic Surgery
DX: T84.84XA Pain due to internal orthopedic prosthetic devices, implants and grafts, initial encounter (principal); S82.871D Displaced pilon fracture of right tibia, subsequent encounter for closed fracture with routine healing; I10 Essential (primary) hypertension; I25.10 Atherosclerotic heart disease of native coronary artery without angina pectoris; M19.90 Unspecified osteoarthritis, unspecified site; K21.9 Gastro-esophageal reflux disease without esophagitis; F41.9 Anxiety disorder, unspecified; F32.A Depression, unspecified; F17.210 Nicotine dependence, cigarettes, uncomplicated; F10.90 Alcohol use, unspecified, uncomplicated; F15.90 Other stimulant use, unspecified, uncomplicated; Z90.49 Acquired absence of other specified parts of digestive tract; Z98.51 Tubal ligation status; Z98.891 History of uterine scar from previous surgery; Z98.890 Other specified postprocedural states; Z79.82 Long term (current) use of aspirin; Z79.899 Other long term (current) drug therapy; Z82.61 Family history of arthritis; Z82.49 Family history of ischemic heart disease and other diseases of the circulatory system; X58.XXXD Exposure to other specified factors, subsequent encounter; Y83.8 Other surgical procedures as the cause of abnormal reaction of the patient, or of later complication, without mention of misadventure at the time of the procedure; Y92.89 Other specified places as the place of occurrence of the external cause

== ENCOUNTER → 2024-06-12 | Outpatient (CLI) | payer OTHER ==
[~2024-06-12] MED LIST changes: -Bupivacaine Hydrochloride/Ep2 30 ML VIAL ONE; -Dexamethasone Sodium Phospha 4 MG/ML VIAL IV ONE; -Lactated Ringer's Solution 1,000 ML IV ONE; -Lidocaine Hydrochloride 2% 5 ML SDV IV ONE; -Ondansetron Hydrochloride 4 MG/2 ML VIAL IV ONE; -PROPOFOL 200 MG/20 ML VIAL IV ONE; -SEVOFLURANE 250 ML BOT INH ONE; -ceFAZolin sodium/sodium chlor 20 ML IV ONE
== END | disposition home or self-care (01) ==
LOC: ORTHO 00:20
PROVIDERS: ATTEND Orthopaedic Surgery
DX: T84.9XXD Unspecified complication of internal orthopedic prosthetic device, implant and graft, subsequent encounter (principal); M25.471 Effusion, right ankle; M79.89 Other specified soft tissue disorders; M77.31 Calcaneal spur, right foot; Y82.8 Other medical devices associated with adverse incidents

== ENCOUNTER → 2024-06-26 | Outpatient (CLI) | payer OTHER | END | disposition home or self-care (01) | LOC: RAD 00:54 | PROVIDERS: ATTEND Orthopaedic Surgery | DX: Z13.820 Encounter for screening for osteoporosis (principal); M81.0 Age-related osteoporosis without current pathological fracture; M19.90 Unspecified osteoarthritis, unspecified site ==

== ENCOUNTER 2024-08-16 08:16 | Emergency (ER) | payer OTHER ==
[~2024-08-16] VITALS: Ht 154.9 cm; Wt 61.2 kg
[2024-08-16] MEDS ORDERED: MORPHINE Sulfate 2 MG/ML SYR IV ONE (08:50)
[2024-08-16] MEDS ORDERED: methylPREDNISolone sod succ 125 MG VIAL IV ONE (08:50)
[2024-08-16] MEDS ORDERED: Ondansetron Hydrochloride 4 MG/2 ML VIAL IV ONE (08:50)
[2024-08-16] MEDS ORDERED: Albuterol Sulfate 2.5 MG/3 ML VIAL NEB ONE (08:50)
[2024-08-16 08:58] LABS: MEAN CELL VOLUME 94.5 fl (81.0-99.0); MEAN CORPUSCULAR HGB 32.1 pg (27.0-31.0); MEAN CORPUSCULAR HGB CONC 33.9 g/dl (33.0-37.0); NUCLEATED RED BLOOD CELL 0.2 % (0.0-0.0); PLATELET COUNT AUTOMATED 237 10*3/uL (130-400); RED BLOOD COUNT 4.02 10*6/uL (4.10-5.10); RED CELL DISTRI WIDTH 14.8 % (0-14.5); WHITE BLOOD COUNT 10.2 10*3/uL (4.8-10.8)
[2024-08-16 08:59] LABS: MANUAL DIFF REFLEX YES
[2024-08-16 09:30] LABS: BUN 10 mg/dl (9-23); CHLORIDE 103 mmol/L (98-107); POTASSIUM 3.2 mmol/L (3.4-5.1)
[2024-08-16 09:36] LABS: ATYPICAL LYMPHS 2 % (0-0); PLATELET SUFFICIENCY NORMAL (NORMAL); TOTAL CELLS COUNTED 100 #CELLS
[2024-08-16] MEDS ORDERED: SODIUM CHLORIDE 0.9% 100 ML BAG IV ONE (10:30)
[2024-08-16] MEDS ORDERED: IOHEXOL 350 MG/ML 100 ML VIAL IV ONE ×2 (10:30→10:51)
[2024-08-16] MEDS ORDERED: SODIUM CHLORIDE 0.9% 100 ML IV ONE (10:51)
[2024-08-16] MEDS ORDERED: POTASSIUM CHLORIDE 20 MEQ TAB PO ONE (11:05)
[2024-08-16] MEDS ORDERED: CYCLOBENZAPRINE10 MG PO (11:12)
[2024-08-16] MEDS ORDERED: MELOXICAM15 MG PO (11:12)
== END 2024-08-16 11:17 | disposition home or self-care (01) ==
LOC: ED 08:16
PROVIDERS: Emergency Medicine
DX: M54.6 Pain in thoracic spine (principal); R06.02 Shortness of breath; F12.10 Cannabis abuse, uncomplicated; Z79.899 Other long term (current) drug therapy; Z98.890 Other specified postprocedural states; Z90.49 Acquired absence of other specified parts of digestive tract; F17.200 Nicotine dependence, unspecified, uncomplicated; I25.10 Atherosclerotic heart disease of native coronary artery without angina pectoris; I10 Essential (primary) hypertension; M79.7 Fibromyalgia; F32.A Depression, unspecified; F41.9 Anxiety disorder, unspecified

== ENCOUNTER 2024-12-14 13:14 | Emergency (ER) | payer OTHER ==
[~2024-12-14] VITALS: Ht 154.9 cm; Wt 57.6 kg
[~2024-12-14 13:14] MED LIST changes: +BREYNA 160-4.10.3 GM INH; +CYCLOBENZAPRINE10 MG PO; +MELOXICAM15 MG PO
[2024-12-14] MEDS ORDERED: PANTOPRAZOLE SO40 MG PO (14:23)
[2024-12-14] MEDS ORDERED: BUSPAR15 MG PO (14:25)
[2024-12-14 14:30] LABS: BASO # 0.1 10*3/uL (0.0-0.1); BASO % 1.4 % (0.0-1.0); EOS # 0.0 10*3/uL (0.0-0.4); EOS % 0.4 % (1.0-4.0); MEAN CELL VOLUME 100.7 fl (81.0-99.0); MEAN CORPUSCULAR HGB 34.6 pg (27.0-31.0); MEAN PLATELET VOLUME 8.9 fl (9.6-12.3); MONO # 0.4 10*3/uL (0.1-1.0); MONO % 7.7 % (3.0-9.0); NEUT # 3.0 10*3/uL (2.3-7.9); NEUT % 51.8 % (47.0-73.0); NUCLEATED RED BLOOD CELL 0.0 % (0.0-0.0); NUCLEATED RED BLOOD CELL 0.0 10*3/uL (0.0-0.0); PLATELET COUNT AUTOMATED 93 10*3/uL (130-400); RED CELL DISTRI WIDTH 15.3 % (0-14.5)
[2024-12-14] MEDS ORDERED: METOPROLOL TART50 M1 PO (14:30)
[2024-12-14] MEDS ORDERED: FUROSEMIDE20 M1 PO (14:31)
[2024-12-14] MEDS ORDERED: POTASSIUM CHLO10 MEQ PO (14:31)
[2024-12-14] MEDS ORDERED: BREYNA 160-4.10.3 GM INH (14:32)
[2024-12-14 14:38] LABS: ACT PARTIAL THROMBO TIME 30.0 SECONDS (20.0-32.1)
[2024-12-14 14:48] LABS: BUN 8 mg/dl (9-23); CPK 39 U/L (34-171); ETHYL ALCOHOL 196.3 mg/dl (<3); SGPT/ALT 52 U/L (5-49)
[2024-12-14 14:58] LABS: BILIRUBIN Negative (Negative); BLOOD Negative (Negative); CLARITY Clear (Clear); COLOR Yellow (Yellow); KETONE 2+ (Negative); LEUKO ESTERASE Negative (Negative); NITRITE Negative (Negative); PH 5.5 (4.5-8.0); SPECIFIC GRAVITY 1.015 (1.001-1.030); UROBILINOGEN 1.0 E.U./dl (0.0-1.0)
[2024-12-14 15:05] LABS: URINE AMPHETAMINES Negative (1000ng/ml); URINE BARBITURATES Negative (200ng/ml); URINE BENZODIAZEPINES Negative (200ng/ml); URINE CANNABINOIDS (THC) Negative (50ng/ml); URINE COCAINE Negative (300ng/ml); URINE METHADONE Negative (300ng/ml); URINE OPIATES Negative (300ng/ml); URINE PHENCYCLIDINE Negative (25ng/ml)
[2024-12-14] MEDS ORDERED: SODIUM CHLORIDE 0.9% 1,000 ML IV ONE (15:05)
[2024-12-14] MEDS ORDERED: MAGNESIUM SULFATE 100 ML IV ONE (15:05)
[2024-12-14] MEDS ORDERED: FOLIC ACID 1 MG TAB PO ONE (15:05)
[2024-12-14 15:20] LABS: HYALINE CAST 0-2
[2024-12-14 15:21] LABS: BACTERIA 1+; WBC 0-2 wbc/hpf (0-5)
[2024-12-14] MEDS ORDERED: LORazepam 0.5 MG TAB PO ONE (18:30)
[2024-12-15] MEDS ORDERED: MULTIVITAMIN 1 TAB TAB PO SCH (10:00)
== END 2024-12-14 19:11 | disposition left against medical advice (07) ==
LOC: ED 13:14
PROVIDERS: Internal Medicine
DX: F10.129 Alcohol abuse with intoxication, unspecified (principal); E83.42 Hypomagnesemia; E87.20 Acidosis, unspecified; R74.01 Elevation of levels of liver transaminase levels; R63.8 Other symptoms and signs concerning food and fluid intake; F17.200 Nicotine dependence, unspecified, uncomplicated; Z79.899 Other long term (current) drug therapy; Z98.890 Other specified postprocedural states; Z90.49 Acquired absence of other specified parts of digestive tract; Y90.5 Blood alcohol level of 100-119 mg/100 ml

== ENCOUNTER 2024-12-26 12:29 | Emergency (ER) | payer OTHER ==
[~2024-12-26] VITALS: Ht 154.9 cm; Wt 55.8 kg
[~2024-12-26 12:29] MED LIST changes: +BUSPAR15 MG PO; +FUROSEMIDE20 M1 PO; +POTASSIUM CHLO10 MEQ PO
[2024-12-26] MEDS ORDERED: Ampicillin Sodium/Sulbactam 1.5 GM in SODIUM CHLORIDE 0.9% 50 ML IV ONE (12:55)
[2024-12-26 13:05] LABS: BASO # 0.1 10*3/uL (0.0-0.1); BASO % 1.0 % (0.0-1.0); EOS # 0.0 10*3/uL (0.0-0.4); EOS % 0.4 % (1.0-4.0); MEAN CELL VOLUME 101.3 fl (81.0-99.0); MEAN CORPUSCULAR HGB 34.4 pg (27.0-31.0); MEAN PLATELET VOLUME 8.7 fl (9.6-12.3); MONO # 1.0 10*3/uL (0.1-1.0); MONO % 14.8 % (3.0-9.0); NEUT # 4.3 10*3/uL (2.3-7.9); NEUT % 61.6 % (47.0-73.0); NUCLEATED RED BLOOD CELL 0.0 % (0.0-0.0); NUCLEATED RED BLOOD CELL 0.0 10*3/uL (0.0-0.0); PLATELET COUNT AUTOMATED 204 10*3/uL (130-400); RED CELL DISTRI WIDTH 14.5 % (0-14.5)
[2024-12-26] MEDS ORDERED: ATIVAN0.5 MG PO (13:24)
[2024-12-26 13:25] LABS: BUN 7 mg/dl (9-23)
[2024-12-26] MEDS ORDERED: AMOX-CLAV 875-1 EACH PO (14:38)
== END 2024-12-26 14:38 | disposition home or self-care (01) ==
LOC: ED 12:29
PROVIDERS: Internal Medicine
DX: K12.2 Cellulitis and abscess of mouth (principal); K02.9 Dental caries, unspecified; M19.90 Unspecified osteoarthritis, unspecified site; F41.9 Anxiety disorder, unspecified; F32.A Depression, unspecified; K21.9 Gastro-esophageal reflux disease without esophagitis; I10 Essential (primary) hypertension; J45.909 Unspecified asthma, uncomplicated; Z98.890 Other specified postprocedural states; Z90.49 Acquired absence of other specified parts of digestive tract

== ENCOUNTER 2025-01-06 00:56 | Inpatient (IN) | payer OTHER ==
[2025-01-06] VITALS (12 sets, daily range): BP systolic 72–142; BP diastolic 34–86
[~2025-01-06] VITALS: Ht 154.9 cm; Wt 59.0 kg
[~2025-01-06 00:56] MED LIST changes: +AMOX-CLAV 875-1 EACH PO; +ATIVAN0.5 MG PO
[2025-01-06] MEDS ORDERED: Metoclopramide Hydrochloride 10 MG/2 ML VIAL IV ONE (01:45)
[2025-01-06] MEDS ORDERED: SODIUM CHLORIDE 0.9% 1,000 ML IV ONE ×3 (01:45→13:50)
[2025-01-06 02:21] LABS: BASO # 0.1 10*3/uL (0.0-0.1); BASO % 0.7 % (0.0-1.0); EOS # 0.0 10*3/uL (0.0-0.4); EOS % 0.0 % (1.0-4.0); MEAN CELL VOLUME 104.5 fl (81.0-99.0); MEAN CORPUSCULAR HGB 34.5 pg (27.0-31.0); MEAN PLATELET VOLUME 9.3 fl (9.6-12.3); MONO # 0.5 10*3/uL (0.1-1.0); MONO % 6.3 % (3.0-9.0); NEUT # 6.6 10*3/uL (2.3-7.9); NEUT % 76.9 % (47.0-73.0); NUCLEATED RED BLOOD CELL 0.0 % (0.0-0.0); NUCLEATED RED BLOOD CELL 0.0 10*3/uL (0.0-0.0); PLATELET COUNT AUTOMATED 150 10*3/uL (130-400); RED CELL DISTRI WIDTH 14.2 % (0-14.5)
[2025-01-06 02:25] LABS: BUN 19.0 mg/dl (9-23)
[2025-01-06] MEDS ORDERED: LORazepam 1 MG TAB PO ONE (02:50)
[2025-01-06] MEDS ORDERED: diazePAM 10 MG/2 ML SYR IV ONE (04:30)
[2025-01-06] MEDS ORDERED: ATIVAN1 MG PO (04:35)
[2025-01-06 04:49] LABS: SGPT/ALT 80.0 U/L (5-49)
[2025-01-06] MEDS ORDERED: Dicyclomine Hydrochloride 20 MG TAB PO PRN (04:50)
[2025-01-06] MEDS ORDERED: MAGNESIUM SULFATE 100 ML IV ONE (04:50)
[2025-01-06] MEDS ORDERED: BISACODYL 10 MG SUPP R PRN (04:50)
[2025-01-06] MEDS ORDERED: hydrOXYzine 50 MG CAP PO PRN (04:50)
[2025-01-06] MEDS ORDERED: BISACODYL 5 MG TAB PO PRN (04:50)
[2025-01-06] MEDS ORDERED: ACETAMINOPHEN 650 MG SUPP R PRN (04:50)
[2025-01-06] MEDS ORDERED: ACETAMINOPHEN 325 MG TAB PO PRN (04:50)
[2025-01-06] MEDS ORDERED: Acetaminophen/Hydrocodone 5 MG/325 MG TABLET PO PRN (04:50)
[2025-01-06] MEDS ORDERED: FOLIC ACID 1 MG TAB PO ONE (04:50)
[2025-01-06] MEDS ORDERED: METHOCARBAMOL 750 MG TAB PO PRN (04:50)
[2025-01-06] MEDS ORDERED: Ondansetron Hydrochloride 4 MG/2 ML VIAL IV PRN (04:50)
[2025-01-06] MEDS ORDERED: Promethazine Hydrochloride 25 MG/ML VIAL IV PRN (04:55)
[2025-01-06] MEDS ORDERED: diazePAM 10 MG/2 ML SYR IV PRN (05:30)
[2025-01-06] MEDS ORDERED: BUDESONIDE 0.5 MG AMP NEB SCH (05:40)
[2025-01-06 06:41] LABS: BUN 20 mg/dl (9-23)
[2025-01-06 06:45] LABS: ETHYL ALCOHOL < 3.0 mg/dl (<3)
[2025-01-06] MEDS ORDERED: LORazepam 1 MG TAB PO SCH (08:00)
[2025-01-06 08:15] LABS: BILIRUBIN Negative (Negative); BLOOD 1+ (Negative); CLARITY Clear (Clear); COLOR Yellow (Yellow); KETONE 4+ (Negative); LEUKO ESTERASE 2+ (Negative); NITRITE Negative (Negative); PH 5.5 (4.5-8.0); SPECIFIC GRAVITY 1.015 (1.001-1.030); UROBILINOGEN 1.0 E.U./dl (0.0-1.0)
[2025-01-06 08:23] LABS: URINE AMPHETAMINES Negative (1000ng/ml); URINE BARBITURATES Negative (200ng/ml); URINE BENZODIAZEPINES Positive (200ng/ml); URINE CANNABINOIDS (THC) Negative (50ng/ml); URINE COCAINE Negative (300ng/ml); URINE METHADONE Negative (300ng/ml); URINE OPIATES Negative (300ng/ml); URINE PHENCYCLIDINE Negative (25ng/ml)
[2025-01-06] MEDS ORDERED: SODIUM CHLORIDE 0.9% 500 ML IV ONE (09:40)
[2025-01-06] MEDS ORDERED: Budesonide/Formoterol Fumarate 160/4.5 inhaler INH SCH (10:00)
[2025-01-06] MEDS ORDERED: MULTIVITAMIN 1 TAB TAB PO SCH (10:00)
[2025-01-06 11:42] LABS: BACTERIA 2+; RBC 16-20 rbc/hpf (0-2); WBC TNTC wbc/hpf (0-5)
[2025-01-06 11:43] LABS: MUCOUS 1+
[2025-01-06] MEDS ORDERED: SODIUM CHLORIDE 0.9% 10 ML VIAL IV ONE (12:35)
[2025-01-06 14:25] LABS: BUN 18 mg/dl (9-23); SGPT/ALT 43 U/L (5-49)
[2025-01-06] MEDS ORDERED: SERTRALINE HYDR50 MG PO (14:46)
[2025-01-07] VITALS (7 sets, daily range): BP systolic 101–130; BP diastolic 58–86
[2025-01-07 04:31] LABS: BASO # 0.0 10*3/uL (0.0-0.1); BASO % 0.4 % (0.0-1.0); EOS # 0.0 10*3/uL (0.0-0.4); EOS % 0.4 % (1.0-4.0); MEAN CELL VOLUME 103.4 fl (81.0-99.0); MEAN CORPUSCULAR HGB 34.5 pg (27.0-31.0); MEAN PLATELET VOLUME 9.2 fl (9.6-12.3); MONO # 0.3 10*3/uL (0.1-1.0); MONO % 4.9 % (3.0-9.0); NEUT # 3.0 10*3/uL (2.3-7.9); NEUT % 58.1 % (47.0-73.0); NUCLEATED RED BLOOD CELL 0.0 % (0.0-0.0); NUCLEATED RED BLOOD CELL 0.0 10*3/uL (0.0-0.0); RED CELL DISTRI WIDTH 14.7 % (0-14.5)
[2025-01-07 04:53] LABS: BUN 14 mg/dl (9-23)
[2025-01-07 04:58] LABS: PLATELET COUNT AUTOMATED 85 10*3/uL (130-400)
[2025-01-07] MEDS ORDERED: Thiamine 100 MG TAB PO SCH (10:00)
[2025-01-07] MEDS ORDERED: FOLIC ACID 1 MG TAB PO SCH (10:00)
[2025-01-07] MEDS ORDERED: LORazepam 1 MG TAB PO SCH ×2 (10:00)
[2025-01-07 15:07] LABS: BONE FRACTION 33 % (14-68); INTESTINAL FRACTION 0 % (0-18); LIVER FRACTION 67 % (18-85)
[2025-01-08] VITALS: BP 146/90
[2025-01-08] MEDS ORDERED: LORazepam 1 MG TAB PO PRN (04:00)
[2025-01-08 05:26] LABS: BUN 7 mg/dl (9-23)
[2025-01-08 06:01] LABS: BASO # 0.0 10*3/uL (0.0-0.1); BASO % 0.4 % (0.0-1.0); EOS # 0.1 10*3/uL (0.0-0.4); EOS % 0.9 % (1.0-4.0); MEAN CELL VOLUME 102.7 fl (81.0-99.0); MEAN CORPUSCULAR HGB 34.4 pg (27.0-31.0); MEAN PLATELET VOLUME 10.0 fl (9.6-12.3); MONO # 0.3 10*3/uL (0.1-1.0); MONO % 6.0 % (3.0-9.0); NEUT # 2.6 10*3/uL (2.3-7.9); NEUT % 48.6 % (47.0-73.0); NUCLEATED RED BLOOD CELL 0.0 % (0.0-0.0); NUCLEATED RED BLOOD CELL 0.0 10*3/uL (0.0-0.0); PLATELET COUNT AUTOMATED 80 10*3/uL (130-400); RED CELL DISTRI WIDTH 14.4 % (0-14.5)
[2025-01-08 08:00] VITALS: BP 122/74
[2025-01-08] MEDS ORDERED: BUDESONIDE 0.5 MG AMP NEB SCH (10:00)
[2025-01-08 12:01] VITALS: BP 117/63
[2025-01-08 16:00] VITALS: BP 137/72
[2025-01-08 20:00] VITALS: BP 117/69
[2025-01-08] MEDS ORDERED: TEMAZEPAM 15 MG CAP PO SCH (22:00)
[2025-01-09] VITALS: BP 129/79
[2025-01-09 05:05] LABS: BUN < 5 mg/dl (9-23)
[2025-01-09 06:03] LABS: MEAN CELL VOLUME 100.9 fl (81.0-99.0); MEAN CORPUSCULAR HGB 34.5 pg (27.0-31.0); MEAN PLATELET VOLUME 10.2 fl (9.6-12.3); NUCLEATED RED BLOOD CELL 0.0 % (0.0-0.0); NUCLEATED RED BLOOD CELL 0.0 10*3/uL (0.0-0.0); PLATELET COUNT AUTOMATED 78 10*3/uL (130-400); RED CELL DISTRI WIDTH 14.2 % (0-14.5)
[2025-01-09] MEDS ORDERED: MAGNESIUM SULFATE 50 ML IV ONE (07:30)
[2025-01-09] MEDS ORDERED: POTASSIUM CHLORIDE 20 MEQ TAB PO ONE ×2 (07:30→12:00)
[2025-01-09 08:00] VITALS: BP 149/90
[2025-01-09 08:04] LABS: BASO # 0.0 10*3/uL (0.0-0.1); BASO % 0.6 % (0.0-1.0); EOS # 0.1 10*3/uL (0.0-0.4); EOS % 1.7 % (1.0-4.0); MONO # 0.3 10*3/uL (0.1-1.0); MONO % 6.3 % (3.0-9.0); NEUT # 2.5 10*3/uL (2.3-7.9); NEUT % 48.0 % (47.0-73.0)
[2025-01-09] MEDS ORDERED: RESTORIL30 M1 PO (10:32)
[2025-01-09] MEDS ORDERED: PANTOPRAZOLE SO40 MG PO (11:12)
== END 2025-01-09 12:25 | disposition home or self-care (01) | DRG 871 ==
LOC: ED 00:56 → EDHOLD 04:39 → ICCU 04:39 → EDHOLD 13:50 → ICCU 13:58
PROVIDERS: Emergency Medicine; Student in an Organized Health Care Education/Training Program; ADMIT Internal Medicine; ATTEND Internal Medicine
DX: A41.9 Sepsis, unspecified organism (principal); N17.0 Acute kidney failure with tubular necrosis; E87.20 Acidosis, unspecified; F10.239 Alcohol dependence with withdrawal, unspecified; N39.0 Urinary tract infection, site not specified; I25.10 Atherosclerotic heart disease of native coronary artery without angina pectoris; I10 Essential (primary) hypertension; M79.7 Fibromyalgia; F17.210 Nicotine dependence, cigarettes, uncomplicated; R74.01 Elevation of levels of liver transaminase levels; K76.0 Fatty (change of) liver, not elsewhere classified; K52.9 Noninfective gastroenteritis and colitis, unspecified; R65.20 Severe sepsis without septic shock; F51.04 Psychophysiologic insomnia; K57.30 Diverticulosis of large intestine without perforation or abscess without bleeding; F41.1 Generalized anxiety disorder; K21.9 Gastro-esophageal reflux disease without esophagitis; Z98.891 History of uterine scar from previous surgery; Z90.49 Acquired absence of other specified parts of digestive tract; Z79.899 Other long term (current) drug therapy; Z79.01 Long term (current) use of anticoagulants; Z79.2 Long term (current) use of antibiotics; Z82.49 Family history of ischemic heart disease and other diseases of the circulatory system; Z82.5 Family history of asthma and other chronic lower respiratory diseases; Z71.6 Tobacco abuse counseling; Z82.3 Family history of stroke; Z80.0 Family history of malignant neoplasm of digestive organs; Y90.0 Blood alcohol level of less than 20 mg/100 ml